=== PATIENT | female | born 1940 | race Caucasian/White ===

== ENCOUNTER 2016-12-17 17:10 | Inpatient (IN) | payer MEDICARE, OTHER ==
[2016-12-17 17:22] LABS: Glucose,Whole Blood 83 mg/dL (75-99)
[2016-12-17] MEDS ORDERED: RX INFO: IV CONTRAST WAS GIVEN 1 EACH MISC MISCELLANE PRN (17:32)
[2016-12-17] MEDS ORDERED: SODIUM CHLORIDE 0.9% 1,000 ML IV STA (17:32)
--- NOTE | 2016-12-17 17:56 | ED ---
General Adult HPI - General Chief complaint: Weakness Stated complaint: Poss CVA Time Seen by Provider: 12/17/16 17:14 Source: EMS, RN notes reviewed, old records reviewed Mode of arrival: EMS Limitations: no limitations - History of Present Illness Initial comments: This is a 69 soaking of the ear for evaluation of possible CVA. Patient has history that is unknown at this time secondary to altered mental status and patient's records, patient is unable to give history secondary to mental status , patient brought in per EMS and history from EMS as well as previous report from patient's family, right-sided facial weakness and deficit and droop, altered mental status throughout the day as well as right-sided arm and leg weakness. Per EMS patient's symptoms seem to kind of wax and wane, but they did also state that patient was unresponsive throughout much of exam, history otherwise obtained from EMS and the patient's chart - Related Data Home Medications Medication Instructions Recorded Confirmed Unable To Assess [Unable to Assess] 12/17/16 12/17/16 Allergies Allergy/AdvReac Type Severity Reaction Status Date / Time No Known Allergies Allergy Verified 12/17/16 17:21 Review of Systems ROS Statement: Those systems with pertinent positive or pertinent negative responses have been documented in the HPI. ROS Other: All systems not noted in ROS Statement are negative. Past Medical History Past Medical History: Unable to Obtain History of Any Multi-Drug Resistant Organisms: None Reported Past Surgical History: Unable to Obtain Past Psychological History: No Psychological Hx Reported Smoking Status: Current every day smoker Past Alcohol Use History: None Reported Past Drug Use History: None Reported General Exam - General Exam Comments Initial Comments: NIH of 8, right-sided deficit Limitations: no limitations, altered mental status General appearance: alert, in no apparent distress Head exam: Present: atraumatic, normocephalic, normal inspection Eye exam: Present: normal appearance, PERRL, EOMI. Absent: scleral icterus, conjunctival injection, periorbital swelling ENT exam: Present: normal exam, mucous membranes moist Neck exam: Present: normal inspection. Absent: tenderness, meningismus, lymphadenopathy Respiratory exam: Present: normal lung sounds bilaterally. Absent: respiratory distress, wheezes, rales, rhonchi, stridor Cardiovascular Exam: Present: regular rate, normal rhythm, normal heart sounds. Absent: systolic murmur, diastolic murmur, rubs, gallop, clicks GI/Abdominal exam: Present: soft, normal bowel sounds. Absent: distended, tenderness, guarding, rebound, rigid Extremities exam: Present: normal inspection, full ROM, normal capillary refill. Absent: tenderness, pedal edema, joint swelling, calf tenderness Back exam: Present: normal inspection Neurological exam: Present: alert, oriented X3, CN II-XII intact Psychiatric exam: Present: normal affect, normal mood Skin exam: Present: warm, dry, intact, normal color. Absent: rash Course Vital Signs 12/17/16 12/17/16 12/17/16 17:15 17:30 17:45 Temperature 97.2 F L Pulse Rate 92 93 95 Respiratory 18 18 18 Rate Blood Pressure 258/133 235/136 210/159 O2 Sat by Pulse 97 98 98 Oximetry 12/17/16 12/17/16 18:00 18:15 Temperature Pulse Rate 96 90 Respiratory 18 18 Rate Blood Pressure 211/105 186/101 O2 Sat by Pulse 97 98 Oximetry - Reevaluation(s) Reevaluation #1: 12/17/16 18:36 Code stroke was paged, patient was evaluated by on-call neuro interventionalists , decision was made at this time for no TPA secondary to timing of onset of symptoms Reevaluation #2: 12/17/16 18:36 Patient has a significant urinary tract infection blood pressure management issues Reevaluation #3: 12/17/16 18:36 Patient does waxwing of consciousness, responsiveness EKG Findings - EKG Comments: EKG Findings:: EKG shows sinus arrhythmia 93, NC 216, QRS 90, QTc 469 Medical Decision Making - Lab Data Result diagrams: 12/17/16 17:50 12/17/16 17:50 Lab Results 12/17/16 12/17/16 12/17/16 Range/Units 17:21 17:50 17:50 WBC 5.6 (3.8-10.6) k/uL RBC 5.11 (3.80-5.40) m/uL Hgb 15.2 (11.4-16.0) gm/dL Hct 47.4 H (34.0-46.0) % MCV 92.8 (80.0-100.0) fL MCH 29.8 (25.0-35.0) pg MCHC 32.1 (31.0-37.0) g/dL RDW 14.0 (11.5-15.5) % Plt Count 202 (150-450) k/uL Neutrophils % 58 % Lymphocytes % 28 % Monocytes % 4 % Eosinophils % 6 % Basophils % 1 % Neutrophils # 3.2 (1.3-7.7) k/uL Lymphocytes # 1.6 (1.0-4.8) k/uL Monocytes # 0.2 (0-1.0) k/uL Eosinophils # 0.3 (0-0.7) k/uL Basophils # 0.0 (0-0.2) k/uL PT (9.0-12.0) sec INR (<1.1) APTT (22.0-30.0) sec Sodium 141 (137-145) mmol/L Potassium 4.4 (3.5-5.1) mmol/L Chloride 106 (98-107) mmol/L Carbon Dioxide 24 (22-30) mmol/L Anion Gap 11 mmol/L BUN 26 H (7-17) mg/dL Creatinine 1.13 H (0.52-1.04) mg/dL Est GFR (MDRD) Af Amer 57 (>60 ml/min/1.73 sqM) Est GFR (MDRD) Non-Af 47 (>60 ml/min/1.73 sqM) Glucose 92 (74-99) mg/dL POC Glucose (mg/dL) 83 (75-99) mg/dL POC Glu Cigar Head Pegger ID Abdulaziz, Temi Calcium 9.3 (8.4-10.2) mg/dL Phosphorus 3.2 (2.5-4.5) mg/dL Magnesium 2.1 (1.6-2.3) mg/dL Total Bilirubin 0.6 (0.2-1.3) mg/dL AST 19 (14-36) U/L ALT 24 (9-52) U/L Alkaline Phosphatase 101 (38-126) U/L Total Protein 7.8 (6.3-8.2) g/dL Albumin 4.3 (3.5-5.0) g/dL Urine Color Urine Appearance (Clear) Urine pH (5.0-8.0) Ur Specific [place] (1.001-1.035) Urine Protein (Negative) Urine Glucose (UA) (Negative) Urine Ketones (Negative) Urine Blood (Negative) Urine Nitrate (Negative) Urine Bilirubin (Negative) Urine Urobilinogen (<2.0) mg/dL Ur Leukocyte Esterase (Negative) Urine RBC (0-5) /hpf Urine WBC (0-5) /hpf Ur Squamous Epith Cells (0-4) /hpf Urine Bacteria (None) /hpf Urine Mucus (None) /hpf 12/17/16 12/17/16 Range/Units 17:50 18:02 WBC (3.8-10.6) k/uL RBC (3.80-5.40) m/uL Hgb (11.4-16.0) gm/dL Hct (34.0-46.0) % MCV (80.0-100.0) fL MCH (25.0-35.0) pg MCHC (31.0-37.0) g/dL RDW (11.5-15.5) % Plt Count (150-450) k/uL Neutrophils % % Lymphocytes % % Monocytes % % Eosinophils % % Basophils % % Neutrophils # (1.3-7.7) k/uL Lymphocytes # (1.0-4.8) k/uL Monocytes # (0-1.0) k/uL Eosinophils # (0-0.7) k/uL Basophils # (0-0.2) k/uL PT 10.3 (9.0-12.0) sec INR 1.0 (<1.1) APTT 23.6 (22.0-30.0) sec Sodium (137-145) mmol/L Potassium (3.5-5.1) mmol/L Chloride (98-107) mmol/L Carbon Dioxide (22-30) mmol/L Anion Gap mmol/L BUN (7-17) mg/dL Creatinine (0.52-1.04) mg/dL Est GFR (MDRD) Af Amer (>60 ml/min/1.73 sqM) Est GFR (MDRD) Non-Af (>60 ml/min/1.73 sqM) Glucose (74-99) mg/dL POC Glucose (mg/dL) (75-99) mg/dL POC Glu Cigar Head Pegger ID Calcium (8.4-10.2) mg/dL Phosphorus (2.5-4.5) mg/dL Magnesium (1.6-2.3) mg/dL Total Bilirubin (0.2-1.3) mg/dL AST (14-36) U/L ALT (9-52) U/L Alkaline Phosphatase (38-126) U/L Total Protein (6.3-8.2) g/dL Albumin (3.5-5.0) g/dL Urine Color Light Yellow Urine Appearance Turbid H (Clear) Urine pH 7.0 (5.0-8.0) Ur Specific [place] 1.011 (1.001-1.035) Urine Protein 1+ H (Negative) Urine Glucose (UA) Negative (Negative) Urine Ketones Negative (Negative) Urine Blood Negative (Negative) Urine Nitrate Negative (Negative) Urine Bilirubin Negative (Negative) Urine Urobilinogen <2.0 (<2.0) mg/dL Ur Leukocyte Esterase Large H (Negative) Urine RBC 6 H (0-5) /hpf Urine WBC >182 H (0-5) /hpf Ur Squamous Epith Cells 96 H (0-4) /hpf Urine Bacteria Many H (None) /hpf Urine Mucus Occasional H (None) /hpf Critical Care Time Critical Care Time: Yes Total Critical Care Time: 31 Disposition Clinical Impression: Dehydration, Altered mental state, Hypertensive emergency, UTI (urinary tract infection), CVA (cerebral vascular accident) Disposition: ADMITTED IP TO THIS [facility] Condition: Serious Referrals: Norma Cruz MD [Primary Care Provider] - 1-2 days
--- NOTE | 2016-12-17 18:03 | CT ---
EXAMINATION TYPE: CT brain wo con DATE OF EXAM: 12/17/2016 5:52 PM COMPARISON: 09/27/2010 HISTORY: Unresponsive. CT DLP: 1591.00 mGycm Automated exposure control for dose reduction was used. FINDINGS: There is some enlargement of the ventricles. There is no mass effect nor midline shift. There is no s ign of intracranial hemorrhage. There is evidence of old right anterior lacunar infarct in the video production intern al capsule. There is hypodensity around the frontal horns of the lateral ventricles. There is bilater al parietal lobe white matter hypodensity. Calvarium is intact. IMPRESSION: Cerebral atrophy and chronic small vessel ischemia. Old lacunar infarct anterior right internal capsu le. No acute intracranial abnormality. The extensive white matter disease is also present on the old MR scan of 09/27/2010.
[2016-12-17] MEDS ORDERED: LABETALOL SYRINGE 5 MG/ML IVP STA (18:05)
[2016-12-17] MEDS ORDERED: cefTRIAXone 2,000 MG in SODIUM CHLORIDE 0.9% 100 ML IVPB STA (18:05)
[2016-12-17 18:09] LABS: Basophils % (A) 1 %; CH 30.6; CHCM 33.1; Eosinophils # (A) 0.3 k/uL (0-0.7); Eosinophils % (A) 6 %; HCT 47.4 % (34.0-46.0); HGB 15.2 gm/dL (11.4-16.0); Luc # (Auto) 0.19; Luc % (Auto) 3; Lymphocytes # (A) 1.6 k/uL (1.0-4.8); Lymphocytes % (A) 28 %; MCH 29.8 pg (25.0-35.0); MCHC 32.1 g/dL (31.0-37.0); MCV 92.8 fL (80.0-100.0); Mean Platelet Volume 6.8; Monocytes # (A) 0.2 k/uL (0-1.0); Monocytes % (A) 4 %; Neutrophils # (A) 3.2 k/uL (1.3-7.7); Neutrophils % (A) 58 %; RBC 5.11 m/uL (3.80-5.40); WBC 5.6 k/uL (3.8-10.6)
--- NOTE | 2016-12-17 18:20 | CT ---
EXAMINATION TYPE: CT angio head neck DATE OF EXAM: 12/17/2016 6:09 PM COMPARISON: NONE HISTORY: Unresponsive CT DLP: 1591.00 mGycm Automated exposure control for dose reduction was used. CONTRAST: Performed with IV Contrast, patient injected with 65 mL of Omnipaque 350. FINDINGS: There are 3-D post processed images. There is atherosclerotic plaque and calcification at the aortic arch. There is normal branching pattern of the great vessels. There is bilateral patency of the verte bral arteries. There is arterial flow in the common internal and external carotid arteries bilaterall y. There is tortuosity of the right internal carotid artery. There is arterial flow in the anterior middle and posterior cerebral arteries bilaterally. There is n o sign of aneurysm or neovascularity. There is mild ectasia of the basilar artery. There is no sign o f aneurysm. There is no sign of hemodynamically significant stenosis in the carotid and vertebral art eries. There is mild plaque at the carotid artery bifurcations with narrowing up to 25%. IMPRESSION: THERE IS ATHEROSCLEROTIC VASCULAR DISEASE. NO EVIDENCE OF HEMODYNAMICALLY SIGNIFICANT STENOSIS. NO AN EURYSM SEEN.
[2016-12-17 18:30] LABS: Calcium 9.3 mg/dL (8.4-10.2); Magnesium 2.1 mg/dL (1.6-2.3); Phosphorous 3.2 mg/dL (2.5-4.5); Potassium 4.4 mmol/L (3.5-5.1); Total Bilirubin 0.6 mg/dL (0.2-1.3); Total Protein 7.8 g/dL (6.3-8.2)
[2016-12-17 18:31] LABS: Appearance,Urine Turbid (Clear); Bacteria,Urine Many /hpf; Bilirubin,Urine Negative (Negative); Glucose,Urine (UA) Negative (Negative); Ketones,Urine Negative (Negative); Leukocyte Esterase,Urine Large (Negative); Mucus,Urine Occasional /hpf; Nitrite,Urine Negative (Negative); Particle Count 78996; Protein,Urine 1+ (Negative); RBC,Urine 6 /hpf (0-5); Specific Gravity,Urine 1.011 (1.001-1.035); Squamous Epithelial Cell,Urine 96 /hpf (0-4); UA Billing (MACRO vs. MICRO) MICRO; Urobilinogen,Urine <2.0 mg/dL (<2.0); WBC,Urine >182 /hpf (0-5)
[2016-12-17 18:33] LABS: Partial Thromboplastin Time 23.6 sec (22.0-30.0); Prothrombin Time 10.3 sec (9.0-12.0)
[2016-12-17] MEDS ORDERED: ASPIRIN 325 MG TAB PO STA (18:34)
[2016-12-17 18:35] LABS: Creatine Kinase 43 U/L (30-135)
[2016-12-17] MEDS: SODIUM CHLORIDE 0.9% 1,000 ML IV SCH (18:37)
--- NOTE | 2016-12-17 18:45 | XR ---
EXAMINATION TYPE: XR chest 1V portable DATE OF EXAM: 12/17/2016 6:40 PM COMPARISON: NONE HISTORY: Possible CVA TECHNIQUE: Single frontal view of the chest is obtained. FINDINGS: Heart is enlarged. There is coarsening of interstitial markings. There is no pleural effus ion. There are no hilar masses. There are chest leads. IMPRESSION: No gross heart failure. Mild pulmonary fibrotic changes. Cardiomegaly.
[2016-12-17 18:47] LABS: Creatine Kinase MB 0.7 ng/mL (0.0-2.4); Troponin I <0.012 ng/mL (0.000-0.034)
[2016-12-17 20:27] VITALS: BMI 34.4
[2016-12-18] MEDS: SODIUM CHLORIDE 0.9% 1,000 ML IV SCH ×2 (01:29→15:35)
--- NOTE | 2016-12-18 08:45 | US ---
EXAMINATION TYPE: US carotid duplex BILAT DATE OF EXAM: 12/18/2016 8:04 AM COMPARISON: NONE CLINICAL HISTORY: Stenosis. Weakness, possible CVA EXAM MEASUREMENTS: RIGHT: Peak Systolic Velocity (PSV) cm/sec ----- Right CCA: 33.9 ----- Right ICA: 87.8 ----- Right ECA: 50.5 ICA/CCA ratio: 2.6 RIGHT: End Diastole cm/sec ----- Right CCA: 12.1 ----- Right ICA: 37.3 ----- Right ECA: 16.4 LEFT: Peak Systolic Velocity (PSV) cm/sec ----- Left CCA: 67.9 ----- Left ICA: 71.7 ----- Left ECA: 107.3 ICA/CCA ratio: 1.1 LEFT: End Diastole cm/sec ----- Left CCA: 15.0 ----- Left ICA: 19.7 ----- Left ECA: 18.0 VERTEBRALS (direction of flow): Right Vertebral: Antegrade Left Vertebral: Antegrade TECHNOLOGIST IMPRESSION: Mild to moderate plaque noted bilateral bifurcations. Tortuous right ICA IMPRESSION: I do not see evidence of a hemodynamically significant stenosis in either carotid system. Criteria for Assigning % of Stenosis / Diameter reduction (Estimation based on the indirect measurements of the internal carotid artery velocities (ICA PSV). 1. Normal (no stenosis)=ICA PSV < 125 cm/s: ratio < 2.0: ICA EDV<40 cm/s. 2. Less than 50% stenosis=ICA PSV < 125 cm/s: ratio < 2.0: ICA EDV<40 cm/s. 3. 50 to 69% stenosis=ICA PSV of 125 to 230 cm/s: ration 2.0 ? 4.0: ICA EDV 40-100 cm/s. 4. Greater than 70% stenosis to near occlusion= ICA PSV > 230 cm/s: ratio > 4.0: ICA EDV > 100 cm/s. 5. Near occlusion= ICA PSV velocities may be low or undetectable: variable ratio and ICA EDV. 6. Total occlusion=unable to detect flow.
[2016-12-18 09:08] LABS: Basophils % (A) 0 %; CH 30.2; CHCM 32.1; Eosinophils # (A) 0.3 k/uL (0-0.7); Eosinophils % (A) 5 %; HCT 42.1 % (34.0-46.0); HDW 2.54; HGB 13.3 gm/dL (11.4-16.0); Luc # (Auto) 0.11; Luc % (Auto) 3; Lymphocytes # (A) 1.3 k/uL (1.0-4.8); Lymphocytes % (A) 29 %; MCH 29.8 pg (25.0-35.0); MCHC 31.5 g/dL (31.0-37.0); MCV 94.7 fL (80.0-100.0); Mean Platelet Volume 7.8; Monocytes # (A) 0.3 k/uL (0-1.0); Monocytes % (A) 6 %; Neutrophils # (A) 2.6 k/uL (1.3-7.7); Neutrophils % (A) 57 %; RBC 4.44 m/uL (3.80-5.40); RDW 13.9 % (11.5-15.5); WBC 4.5 k/uL (3.8-10.6); WBC (Perox) 4.85
[2016-12-18 09:14] LABS: ALT 17 U/L (9-52); AST 16 U/L (14-36); Alkaline Phosphatase 78 U/L (38-126); Anion Gap 10 mmol/L; Blood Urea Nitrogen 23 mg/dL (7-17); Calcium 8.7 mg/dL (8.4-10.2); Carbon Dioxide 23 mmol/L (22-30); Chloride 112 mmol/L (98-107); Glucose 102 mg/dL (74-99); Non-African American GFR(MDRD) 54 (>60 ml/min/1.73 sqM); Potassium 4.1 mmol/L (3.5-5.1); Sodium 145 mmol/L (137-145); Total Bilirubin 0.5 mg/dL (0.2-1.3); Total Protein 6.5 g/dL (6.3-8.2)
--- NOTE | 2016-12-18 09:36 | ECHOF ---
Referral Reason:Thrombus MEASUREMENTS -------- HEIGHT: 154.9 cm WEIGHT: 82.5 kg BP: IVSd: 1.9 cm (0.6 - 1.1) LVIDd: 3.2 cm (3.9 - 5.3) LVPWd: 1.8 cm (0.6 - 1.1) IVSs: 2.6 cm LVIDs: 1.8 cm LVPWs: 2.3 cm Ao Diam: 3.3 cm (2.0 - 3.7) AV Cusp: 1.6 cm (1.5 - 2.6) LA Diam: 3.4 cm (2.7 - 3.8) MV EXCURSION: 13.536 mm (> 18.000) MV EF SLOPE: 42 mm/s (70 - 150) EPSS: 0.7 cm MV E Justin: 0.84 m/s MV DecT: 310 ms MV A Justin: 1.13 m/s MV E/A Ratio: 0.74 RAP: 5.00 mmHg RVSP: 21.84 mmHg FINDINGS -------- Sinus rhythm. This was a technically adequate study. There is severe concentric left ventricular hypertrophy. Overall left ventricular systolic function is normal with, an EF between 55 - 60 %. The right ventricle is normal in size and function. The left atrium is normal in size. The right atrium is normal in size. Aortic valve is trileaflet and is mildly thickened. The mitral valve leaflets are mildly thickened. Mild mitral regurgitation is present. Mild tricuspid regurgitation present. The right ventricular systolic pressure, as measured by Doppler, is 21.84mmHg. Pulmonic valve appears structurally normal. The aortic root size is normal. The pericardium is normal. CONCLUSIONS -------- 1. Sinus rhythm. 2. Mild mitral regurgitation is present. 3. Mild tricuspid regurgitation present. 4. The right ventricular systolic pressure, as measured by Doppler, is 21.84mmHg. 5. Pulmonic valve appears structurally normal. 6. The aortic root size is normal. 7. The pericardium is normal. 8. This was a technically adequate study. 9. There is severe concentric left ventricular hypertrophy. 10. Overall left ventricular systolic function is normal with, an EF between 55 - 60 %. 11. The right ventricle is normal in size and function. 12. The left atrium is normal in size. 13. The right atrium is normal in size. 14. Aortic valve is trileaflet and is mildly thickened. 15. The mitral valve leaflets are mildly thickened. CONFECTIONERY DROPS MACHINE OPERATOR: Melina De Souza RDCS
[2016-12-18] MEDS: hydrALAZINE HCL 20 MG/ML 1 ML VIAL IVP PRN (09:47)
[2016-12-18] MEDS: amLODIPine 2.5 MG TAB PO SCH (10:38)
[2016-12-18] MEDS: FAMOTIDINE 20 MG TAB PO SCH (10:38)
[2016-12-18] MEDS: ENOXAPARIN 40 MG/0.4 ML SYRINGE SQ SCH (10:39)
[2016-12-18] MEDS: ISOSORBIDE MONONITRATE ER 30 MG TAB.ER.24H PO SCH (10:39)
[2016-12-18] MEDS: LEVOTHYROXINE 88 MCG TAB PO SCH (10:39)
--- NOTE | 2016-12-18 11:17 | P.HPIM ---
History of Present Illness H&P Date: 12/18/16 Chief Complaint: Right-sided weakness and slurred speech This is a 76-year-old female with a known past medical history of previous CVA, myocardial infarction, dementia, hyperlipidemia, hypertension, hypothyroidism and coronary artery disease. Patient is a poor historian. She is unable to speak. Most of history came from the chart. Patient was brought into the emergency room secondary to altered mental status changes as well as right- sided weakness facial droop and slurred speech. There were concerns for possible stroke. She was admitted to the telemetry floor. Neurology has been consulted computed tomography scan of the brain shows cerebral atrophy and chronic small vessel ischemia. Old lacunar infarct anterior right internal capsule. No acute intracranial abnormality. She was placed on a full aspirin. She is also had a carotid ultrasound showing no significant hemodynamic stenosis. Echo shows an EF of 55-60% with severe left ventricle hypertrophy. Patient had hypertensive emergency with a blood pressure of 258/133 on admission. Currently receiving IV hydralazine as needed. Patient also had evidence of a UTI and has been started on Rocephin. Patient lying in bed comfortably no distress. There is some evidence of a right-sided facial droop and is having difficulty talking. When asked questions she states her head yes or no. She denies any chest pain, shortness of breath, nausea or vomiting. Denies any bowel movement changes or urinary symptoms. Review of Systems Please refer to HPI otherwise unremarkable Past Medical History Past Medical History: Coronary Artery Disease (CAD), Chest Pain / Angina, CVA/ TIA, Dementia, GERD/Reflux, Hyperlipidemia, Hypertension, Memory Impairment, Myocardial Infarction ([place]), Osteoarthritis (OA), Pneumonia, Thyroid Disorder Last Myocardial Infarction Date:: 2006 History of Any Multi-Drug Resistant Organisms: None Reported Past Surgical History: Breast Surgery, Heart Catheterization With Stent, Tubal Ligation Additional Past Surgical History / Comment(s): cataract surgery, AAA surgery, breast lumps removed Past Anesthesia/Blood Transfusion Reactions: No Reported Reaction Date of Last Stent Placement:: 2006 Past Psychological History: No Psychological Hx Reported, Depression Smoking Status: Current every day smoker Past Alcohol Use History: None Reported Past Drug Use History: None Reported - Past Family History Father Additional Family Medical History / Comment(s): alcoholic, AAA Mother Family Medical History: Memory Impairment Additional Family Medical History / Comment(s): from Alzheimers Medications and Allergies Home Medications Medication Instructions Recorded Confirmed Type Ergocalciferol [Vitamin D2] 50,000 unit PO Q7D 12/17/16 12/17/16 History HYDROcodone/APAP 5-325MG [[place] 2 tab PO Q4HR PRN 12/17/16 12/17/16 History 5-325] Isosorbide Mononitrate ER [Imdur] 30 mg PO DAILY 12/17/16 12/17/16 History Levothyroxine Sodium [Synthroid] 88 mcg PO DAILY 12/17/16 12/17/16 History Lisinopril [Zestril] 10 mg PO BID 12/17/16 12/17/16 History Pravastatin Sodium [Pravachol] 40 mg PO HS 12/17/16 12/17/16 History amLODIPine [Norvasc] 2.5 mg PO DAILY 12/17/16 12/17/16 History Allergies Allergy/AdvReac Type Severity Reaction Status Date / Time nickel Allergy Unknown Verified 12/17/16 19:07 Physical Exam Vitals: Vital Signs Temp Pulse Pulse Resp BP BP Pulse Ox 12/18/16 10:40 146/94 12/18/16 08:45 68 18 12/18/16 08:39 96.9 F L 94 18 175/97 12/18/16 04:00 97.3 F L 65 18 157/85 97 12/17/16 23:56 97.8 F 71 18 164/90 100 12/17/16 20:00 70 18 12/17/16 19:05 97.7 F 72 70 18 145/81 155/100 99 12/17/16 18:50 74 18 151/76 97 12/17/16 18:37 84 18 200/113 98 Intake and Output 12/17/16 12/18/16 12/18/16 22:59 06:59 14:59 Intake Total 600 Balance 600 Intake: IV 600 Sodium Chloride 0.9% 1, 600 000 ml @ 100 mls/hr IV . Q10H [facility] Rx#:[id number] Other: Voiding Method Diaper Diaper Diaper # Voids 0 Weight 82.781 kg 81.5 kg Head normocephalic Neck supple Lungs clear to auscultation bilaterally no wheezing or crackles Heart regular rate and rhythm S1-S2, no rub or gallop Abdomen is soft nontender nondistended positive bowel sounds no hepatosplenomegaly Extremities no edema Neuro patient is awake and lying in bed comfortably. She is able to say her name. Otherwise she is having difficulty with words. Right side of facial droop. Hand print cutter is about a 4 out of 5 on the right compared to to the left. Lower extremity strength is weak bilaterally. Results CBC & Chem 7: 12/18/16 02:55 12/18/16 02:55 Labs: Abnormal Lab Results - Last 24 Hours (Table) 12/18/16 Range/Units 02:55 Chloride 112 H (98-107) mmol/L BUN 23 H (7-17) mg/dL Glucose 102 H (74-99) mg/dL Thrombosis Risk Factor Assmnt - Choose All That Apply Any of the Below Risk Factors Present?: Yes Each Factor Represents 1 point: Acute [place] Each Risk Factor Represents 3 Points: Age 75 years or older Other congenital or acquired thrombophilia - If yes, enter type in comment: No Thrombosis Risk Factor Assessment Total Risk Factor Score: 4 Thrombosis Risk Factor Assessment Level: Moderate Risk Assessment and Plan Plan: 1. Facial droop with right-sided weakness and slurred speech possibly related to CVA. Neuro workup in progress. Initial computed tomography scan of the brain did not show any acute intracranial abnormality. Revealed severe atrophy and chronic small vessel ischemic change and old lacunar infarct of the anterior right internal capsule. Carotid Doppler showed no snacking hemodynamic stenosis. Echo shows an EF of 55-60% with severe left ventricle hypertrophy. Patient was evaluated by speech therapy diet has been adjusted to a pured nectar thick diet. EKG shows a normal sinus rhythm with first-degree AV block. CTA of the head and neck shows no significant hemodynamic stenosis. Check lipid panel. PT OT consult. Continue full aspirin and statin 2. Hypertensive emergency on admission: Blood pressure 258/133 on admission. Patient's blood pressures medications will be restarted. She also has IV hydralazine as needed. 3. UTI: Urine culture pending. Continue Rocephin 4. Acute kidney injury on admission with a creatinine of 1.13 possibly related to dehydration. Improved with IV fluids. Continue to monitor 5. History of myocardial infarction with coronary artery disease with previous stent. 6. Dementia 7. history of essential hypertension 8. Hyperlipidemia 9. Hypothyroidism continue her Synthroid 10. Nicotine dependence. Start nicotine patch GI prophylaxis Pepcid and DVT prophylaxis Lovenox Time with Patient: Greater than 30 (Greater than 50% of the total time spent in counseling and coordination of care.I performed an examination of the patient and discussed their management with the physician Chainstitch Zipper Setter. I have reviewed the Physician Chainstitch Zipper Setter's notes and agree with the documented findings and plan of care)
[2016-12-18 12:21] LABS: Cholesterol 217 mg/dL (<200); HDL Cholesterol 31 mg/dL (40-60); Triglycerides 160 mg/dL (<150)
[2016-12-18] MEDS: NICOTINE 21MG/24HR PATCH TRANSDERM SCH (15:34)
[2016-12-18] MEDS: PROLENSA 0.07% BOTH EYES SCH (15:35)
[2016-12-18] MEDS: ASPIRIN 325 MG TAB PO SCH (17:08)
--- NOTE | 2016-12-18 17:37 | P.CNNES ---
History of Present Illness Consult date: 12/18/16 Reason for Consult: This patient admitted for right-sided weakness and stroke. History of Present Illness: This patient is a 76-year-old right-handed white female who was in her usual state of health until yesterday. She was at home and was noted to have increasing symptoms of right-sided weakness. According to the daughter who provided the medical history she lives at home with the sister who takes care of her. Apparently she developed sudden right-sided arm and leg weakness. She was having difficulty ambulating at home. The patient was brought into the emergency room where she was further evaluated. She was sent for a computed tomography scan of the brain which failed to reveal any evidence of acute stroke or hemorrhage. She did have evidence of hypertensive urgency in the ER and was treated. A code stroke was initiated and she was evaluated by the neuro interventional is. Decision was made the patient was not a TPA candidate. Onset of her symptoms was unknown. This was 6 lesion or a factor. As noted she did undergo computed tomography scan of the brain which revealed cerebral atrophy and chronic small vessel ischemic changes. There was evidence of an old lacunar infarct in the right internal capsule. According to the daughter the patient had been doing fairly well up until recently. She has been showing increasing symptoms of weakness. The patient did undergo a CT angiogram which failed to reveal any evidence of significant carotid artery disease or stenosis. No aneurysm was seen. According to the daughter the patient has a history of a remote small brain tumor lesion. She states this was detected years ago by MRI imaging. This was not detected on the CAT scan report. The patient continues to show evidence of dysarthric speech and aphasia. She is weaker on her right side but has shown improvement since admission to the hospital. This is been noted by the daughter as well. Patient still has some right-sided weakness however and is admitted for full stroke evaluation. Neurology is now consulted for further evaluation and recommendations. Review of Systems Constitutional: Denies chills, Denies fever Eyes: denies blurred vision, denies pain Ears, nose, mouth and throat: Denies headache, Denies sore throat Cardiovascular: Denies chest pain, Denies shortness of breath Respiratory: Denies cough Gastrointestinal: Denies abdominal pain, Denies diarrhea, Denies nausea, Denies vomiting Genitourinary: Denies dysuria, Denies hematuria Musculoskeletal: Denies myalgias Integumentary: Denies pruritus, Denies rash Neurological: Reports change in mentation, Reports change in speech, Reports confusion, Reports gait dysfunction, Reports headaches, Reports memory loss, Denies numbness, Denies weakness Psychiatric: Denies anxiety, Denies depression Endocrine: Denies fatigue, Denies weight change Past Medical History Past Medical History: Coronary Artery Disease (CAD), Chest Pain / Angina, CVA/ TIA, Dementia, GERD/Reflux, Hyperlipidemia, Hypertension, Memory Impairment, Myocardial Infarction (NC), Osteoarthritis (OA), Pneumonia, Thyroid Disorder Last Myocardial Infarction Date:: 2006 History of Any Multi-Drug Resistant Organisms: None Reported Past Surgical History: Breast Surgery, Heart Catheterization With Stent, Tubal Ligation Additional Past Surgical History / Comment(s): cataract surgery, AAA surgery, breast lumps removed Past Anesthesia/Blood Transfusion Reactions: No Reported Reaction Date of Last Stent Placement:: 2006 Past Psychological History: No Psychological Hx Reported, Depression Smoking Status: Current every day smoker Past Alcohol Use History: None Reported Past Drug Use History: None Reported - Past Family History Father Additional Family Medical History / Comment(s): alcoholic, AAA Mother Family Medical History: Memory Impairment Additional Family Medical History / Comment(s): from Alzheimers Medications and Allergies Home Medications Medication Instructions Recorded Confirmed Type Ergocalciferol [Vitamin D2] 50,000 unit PO Q7D 12/17/16 12/17/16 History HYDROcodone/APAP 5-325MG [Plain 2 tab PO Q4HR PRN 12/17/16 12/17/16 History 5-325] Isosorbide Mononitrate ER [Imdur] 30 mg PO DAILY 12/17/16 12/17/16 History Levothyroxine Sodium [Synthroid] 88 mcg PO DAILY 12/17/16 12/17/16 History Lisinopril [Zestril] 10 mg PO BID 12/17/16 12/17/16 History Pravastatin Sodium [Pravachol] 40 mg PO HS 12/17/16 12/17/16 History amLODIPine [Norvasc] 2.5 mg PO DAILY 12/17/16 12/17/16 History Prolensa 1 bottle OPHTHALMIC DAILY 12/18/16 12/18/16 History Allergies Allergy/AdvReac Type Severity Reaction Status Date / Time nickel Allergy Unknown Verified 12/17/16 19:07 Physical Examination - Vital Signs Vital Signs: Vital Signs Temp Pulse Pulse Resp BP BP Pulse Ox 12/18/16 16:00 97 F L 63 17 156/97 12/18/16 12:00 78 19 121/81 97 12/18/16 11:46 66 18 12/18/16 11:43 97.1 F L 66 94 H 145/82 12/18/16 10:40 146/94 12/18/16 08:45 68 18 12/18/16 08:39 96.9 F L 94 18 175/97 12/18/16 04:00 97.3 F L 65 18 157/85 97 12/17/16 23:56 97.8 F 71 18 164/90 100 12/17/16 20:00 70 18 12/17/16 19:05 97.7 F 72 70 18 145/81 155/100 99 12/17/16 18:50 74 18 151/76 97 12/17/16 18:37 84 18 200/113 98 Intake and Output 12/18/16 12/18/16 12/18/16 06:59 14:59 22:59 Intake Total 600 Balance 600 Intake: IV 600 Sodium Chloride 0.9% 1, 600 000 ml @ 100 mls/hr IV . Q10H [facility] Rx#:[id number] Other: Voiding Method Diaper Diaper Diaper # Voids 1 Weight 81.5 kg - Constitutional General appearance: average body habitus, cooperative - EENT EENT: PERRL, mucous membranes moist - Respiratory Respiratory: lungs clear, normal breath sounds - Cardiovascular Cardiovascular: regular rate, normal S1, normal S2 Extremities: no peripheral edema bilaterally - Gastrointestinal Gastrointestinal: normoactive bowel sounds - Integumentary Integumentary: normal - Neurologic Cranial nerve examination: PERRL, V1/V2/V3 grossly intact, intact gag reflex, intact corneal reflex, facial droop (Patient has right upper motor neuron facial weakness.), normal palatal elevation Speech examination: motor aphasia Sensorimotor examination: intact Motor examination - right side: 3/5: biceps, triceps, wrist flexion, wrist extension, dominatrix, hip flexors, knee extensors, dorsiflexion, toe extension (EHL) , plantarflexion Motor examination - left side: 5/5: biceps, triceps, wrist flexion, wrist extension, dominatrix, hip flexors, knee extensors, dorsiflexion, toe extension (EHL) , plantarflexion Detailed sensory examination: intact Reflex and gait examination: intact Reflexes: 1+: ankle, bicep, knee, tricep - Musculoskeletal Musculoskeletal: no pain - Psychiatric Psychiatric: mood/affect appropriate, cooperative Results - Laboratory Findings CBC and BMP: 12/18/16 02:55 12/18/16 02:55 Abnormal Lab Findings: Abnormal Labs 12/18/16 12/18/16 02:55 02:55 Chloride 112 H BUN 23 H Glucose 102 H Triglycerides 160 H Cholesterol 217 H LDL Cholesterol, Calc 154 H HDL Cholesterol 31 L Assessment and Plan (1) Acute ischemic left MCA stroke Status: Acute Code(s): I63.512 - CEREB INFRC D/T UNSP OCCLS OR STENOS OF LEFT MID CEREB ART (2) Acute encephalopathy Status: Acute Code(s): G93.40 - ENCEPHALOPATHY, UNSPECIFIED (3) Dehydration Status: Acute Code(s): E86.0 - DEHYDRATION (4) UTI (urinary tract infection) Status: Acute Code(s): N39.0 - URINARY TRACT INFECTION, SITE NOT SPECIFIED Plan: This patient is a 76-year-old female who was admitted to Hospital with symptoms of acute right-sided weakness. She was brought into the emergency room where she was evaluated in the ER by Dr. Gipson. A computed tomography scan of the brain was done and failed to reveal any evidence of acute stroke or hemorrhage. A code stroke was initiated but she was excluded for TPA by the neuro interventionalist. She was outside of the therapeutic window with no clear time of onset of symptoms. She underwent a CTA angiogram which failed to reveal any acute changes. Patient was admitted to Hospital. She continues to have evidence of aphasia and right-sided hemiparesis. We have recommended the patient undergo an MRI of the brain for further evaluation. She is being treated for hypertensive urgency as well as a urinary tract infection. These factors also are contributing to her acute encephalopathy. We will continue close neurological follow-up for the patient during this admission. Case was discussed at length with the patient and her daughter at bedside. All of their questions were answered. They're aware of her guarded condition. Time with Patient: Greater than 30
[2016-12-18] MEDS: LISINOPRIL 10 MG TAB PO SCH (22:38)
[2016-12-19] MEDS: PRAVASTATIN SODIUM 40 MG TAB PO SCH ×2 (03:24→21:36)
[2016-12-19 07:01] LABS: Basophils % (A) 1 %; CH 30.9; CHCM 33.4; Eosinophils # (A) 0.2 k/uL (0-0.7); Eosinophils % (A) 4 %; HCT 40.4 % (34.0-46.0); HDW 2.62; HGB 13.5 gm/dL (11.4-16.0); Luc # (Auto) 0.14; Luc % (Auto) 2; Lymphocytes # (A) 1.3 k/uL (1.0-4.8); Lymphocytes % (A) 21 %; MCH 31.1 pg (25.0-35.0); MCHC 33.4 g/dL (31.0-37.0); MCV 92.8 fL (80.0-100.0); Mean Platelet Volume 7.6; Monocytes # (A) 0.3 k/uL (0-1.0); Monocytes % (A) 4 %; Neutrophils # (A) 4.4 k/uL (1.3-7.7); Neutrophils % (A) 69 %; RBC 4.35 m/uL (3.80-5.40); RDW 13.9 % (11.5-15.5); WBC 6.3 k/uL (3.8-10.6); WBC (Perox) 6.27
[2016-12-19 07:08] LABS: ALT 24 U/L (9-52); AST 24 U/L (14-36); Alkaline Phosphatase 89 U/L (38-126); Anion Gap 9 mmol/L; Blood Urea Nitrogen 16 mg/dL (7-17); Calcium 8.8 mg/dL (8.4-10.2); Carbon Dioxide 24 mmol/L (22-30); Chloride 110 mmol/L (98-107); Glucose 98 mg/dL (74-99); Non-African American GFR(MDRD) 54 (>60 ml/min/1.73 sqM); Potassium 3.9 mmol/L (3.5-5.1); Sodium 143 mmol/L (137-145); Total Bilirubin 0.8 mg/dL (0.2-1.3); Total Protein 6.7 g/dL (6.3-8.2)
[2016-12-19] MEDS: SODIUM CHLORIDE 0.9% 1,000 ML IV SCH ×3 (08:21→21:36)
[2016-12-19] MEDS: LEVOTHYROXINE 88 MCG TAB PO SCH (08:21)
[2016-12-19] MEDS: ISOSORBIDE MONONITRATE ER 30 MG TAB.ER.24H PO SCH (09:01)
[2016-12-19] MEDS: LISINOPRIL 10 MG TAB PO SCH ×2 (09:01→21:36)
[2016-12-19] MEDS: ENOXAPARIN 40 MG/0.4 ML SYRINGE SQ SCH (09:01)
[2016-12-19] MEDS: NICOTINE 21MG/24HR PATCH TRANSDERM SCH (09:01)
[2016-12-19] MEDS: ASPIRIN 325 MG TAB PO SCH (09:01)
[2016-12-19] MEDS: FAMOTIDINE 20 MG TAB PO SCH (09:02)
[2016-12-19] MEDS: amLODIPine 2.5 MG TAB PO SCH (09:02)
[2016-12-19] MEDS: PROLENSA 0.07% BOTH EYES SCH (09:02)
--- NOTE | 2016-12-19 09:27 | P.PN ---
Subjective Principal diagnosis: Right sided weakness, urinary tract infection Patient is a 76-year-old female well known to my practice who presented to [facility] emergency room with mental status changes aphagia right sided weakness involving the right upper extremity and right lower extremity, difficulty with ambulation, she was evaluated in the emergency room her symptoms were suggestive of stroke computed tomography scan of the brain was negative onset of symptoms was unclear, code stroke was done in the emergency room but no TPA was given she was admitted to telemetry floor for further evaluation and treatment. Neurology consultation was requested patient was seen by Dr. Alcocer, echocardiogram was done and revealed normal sinus rhythm and normal LV function, carotid Doppler was done and did not reveal any significant stenosis. Today patient is feeling better she is alert and oriented she is answering questions appropriately, which is a significant improvement in her mental status since yesterday. She is able to move her right upper extremity and the right lower extremity, there is still however weakness as compared to the left side. Objective - Vital Signs Vital signs: Vital Signs Temp 96.7 F L 12/18/16 20:00 Pulse 69 12/19/16 04:00 Resp 17 12/19/16 04:00 BP 142/76 12/19/16 04:00 Pulse Ox 97 12/19/16 04:00 Intake & Output 12/18/16 12/19/16 12/19/16 18:59 06:59 18:59 Other: Voiding Method Diaper Diaper # Voids 1 2 - Exam In general patient is alert and oriented 3 in no apparent distress HEENT head normocephalic and atraumatic Neck is supple no JVD no goiter no lymphadenopathy Chest exam reveals a few scattered crackles no wheezing Cardiac exam reveals regular heart sounds no gallops no murmurs Abdomen is soft nontender no organomegaly Extremity exam reveals minimal edema no cyanosis or clubbing - Labs CBC & Chem 7: 12/19/16 06:12 12/19/16 06:12 Labs: Abnormal Lab Results - Last 24 Hours (Table) 12/18/16 12/18/16 12/19/16 Range/Units 02:55 02:55 06:12 Chloride 112 H 110 H (98-107) mmol/L BUN 23 H (7-17) mg/dL Glucose 102 H (74-99) mg/dL Triglycerides 160 H (<150) mg/dL Cholesterol 217 H (<200) mg/dL LDL Cholesterol, Calc 154 H (0-99) mg/dL HDL Cholesterol 31 L (40-60) mg/dL Microbiology - Last 24 Hours (Table) 12/18/16 02:55 Blood Culture - Preliminary Blood No Growth after 24 hours Assessment and Plan Plan: #1 stroke with right sided weakness and aphasia improving significantly since yesterday. Echo cardiogram and carotid Doppler was without significant abnormality, patient was evaluated by neurology MRI of the brain was ordered. #2 urinary tract infection maintained on IV Rocephin, urine culture revealing gram-negative bacilli, awaiting further culture results and sensitivity #3 tobacco abuse patient was counseled in regard to smoking cessation she has a nicotine patch at this time. #4 hypertension with hypertensive emergency on presentation, likely due to missing taking her blood pressure medications, blood pressure is better controlled at this time. #5 swallow evaluation done yesterday and patient was started on soft diet. Continue was current management at this time awaiting brain MRI will follow closely.
--- NOTE | 2016-12-19 11:33 | MR ---
MRI of the brain with and without contrast HISTORY: Headaches. TECHNIQUE: T1-weighted sagittal, T2, FLAIR, and diffusion axial, postcontrast T1 axial and coronal vi ews of the brain are submitted. CONTRAST: 16 mL of MultiHance COMPARISON: CT brain 12/27/2016, MRI brain 11/11/2010 FINDINGS: There is diffusion restriction within the left thalamus measuring 1.8 cm compatible with acute ischem ia.. Ventricular prominence suggestive moderate to severe degenerative change. Greater central component r aises the question of normal pressure hydrocephalus.. There is enhancing mass within the posterior fossa which appears extrathoracic axial. Adjacent to the medulla and cerebellum hemisphere. Measures 1.5 x 1.5 x 1.5 cm and demonstrates homogeneous enhancem ent and is most suggestive of a meningioma and stable from the previous exam. No significant mass eff ect. Craniocervical junction maintained. Sella turcica has a normal appearance. No evidence of cerebellopo ntine angle mass. Findings compatible with chronic sinusitis noted. WHITE MATTER: There is confluent areas of diffuse areas of abnormal signal throughout the white matte r bilaterally a pattern most typical of diffuse microvascular ischemia. IMPRESSION: 1. There is a 1.8 cm area of acute ischemia within the left thalamus with no significant mass effect. Results immediately telephoned to the patient's nurse Araceli. 2. Stable posterior fossa mass most typical of meningioma 3. Extensive degenerative and nonspecific white matter changes most typical of remote ischemic white matter change. Component of normal pressure hydrocephalus in the differential diagnosis.
--- NOTE | 2016-12-19 14:25 | P.PN ---
Subjective This patient is a 76-year-old female who was seen yesterday on neurology consultation for evaluation of mental status changes and right-sided weakness. She was seen in the ER and underwent a computed tomography scan of the brain which failed to reveal any acute stroke or hemorrhage. She was subsequent admitted to the hospital for a complete stroke evaluation. Patient underwent MRI of the brain today the results of which were reviewed. MRI indicates a 1.8 cm acute stroke involving the left thalamus. There was evidence of a stable posterior fossa mass most typical of meningioma which apparently is not changed from previous MRI of the brain. There is also extensive degenerative white matter ischemic changes noted in both hemispheres. Results of the MRI were reviewed today with the patient and her daughter at bedside. Cording to the daughter she still shows evidence of expressive aphasia and right-sided hemiparesis. Patient will need ongoing PT/ OT evaluation and possible subacute rehab depending on her progress. Patient will most likely need subacute rehabilitation at the time of discharge. We will continue close neurological follow-up for this patient during this admission. Objective - Vital Signs Vital signs: Vital Signs Temp 98.7 F 12/19/16 08:00 Pulse 72 12/19/16 08:00 Resp 17 12/19/16 04:00 BP 129/78 12/19/16 08:00 Pulse Ox 95 12/19/16 08:00 Intake & Output 12/18/16 12/19/16 12/19/16 18:59 06:59 18:59 Other: Voiding Method Diaper Diaper Diaper # Voids 1 2 - Exam Physical examination: PHYSICAL EXAMINATION: Patient is resting comfortably in bed. VITAL SIGNS: Blood pressure is [129/78]. Heart rate is [72]. Respiration is [17] . Temperature is [98.7]. HEENT: Head is atraumatic, neck is supple, there were no carotid bruits. CHEST: Lungs are clear to auscultation and percussion. CARDIAC: S1, S2 normal rate and rhythm. There is no murmur. ABDOMEN: Soft and nontender. Bowel sounds are present. EXTREMITIES: There is no pedal edema. Peripheral pulses are present. Neurological examination: Neurological examination is unchanged from yesterday. Patient continues to demonstrate evidence of mild expressive aphasia with right-sided hemiparesis. - Labs CBC & Chem 7: 12/19/16 06:12 12/19/16 06:12 Labs: Abnormal Lab Results - Last 24 Hours (Table) 12/19/16 Range/Units 06:12 Chloride 110 H (98-107) mmol/L Microbiology - Last 24 Hours (Table) 12/18/16 02:55 Blood Culture - Preliminary Blood No Growth after 24 hours Assessment and Plan (1) Acute ischemic left MCA stroke Status: Acute Code(s): I63.512 - CEREB INFRC D/T UNSP OCCLS OR STENOS OF LEFT MID CEREB ART (2) Acute encephalopathy Status: Acute Code(s): G93.40 - ENCEPHALOPATHY, UNSPECIFIED (3) Dehydration Status: Acute Code(s): E86.0 - DEHYDRATION (4) UTI (urinary tract infection) Status: Acute Code(s): N39.0 - URINARY TRACT INFECTION, SITE NOT SPECIFIED Plan: This patient is a 76-year-old female who was admitted to Hospital with symptoms of acute right-sided weakness. She was brought into the emergency room where she was evaluated in the ER by Dr. Gipson. A computed tomography scan of the brain was done and failed to reveal any evidence of acute stroke or hemorrhage. A code stroke was initiated but she was excluded for TPA by the neuro interventionalist. She was outside of the therapeutic window with no clear time of onset of symptoms. She underwent a CTA angiogram which failed to reveal any acute changes. Patient was admitted to Hospital. She continues to have evidence of aphasia and right-sided hemiparesis. We have recommended the patient undergo an MRI of the brain for further evaluation. She completed a MRI of the brain which was reviewed today with the daughter. MRI reveals evidence of any acute left thalamic infarct. There is also mention of a posterior fossa mass which is unchanged and represents a meningioma. Patient will need ongoing subacute rehab with PT OT evaluations. We discussed the MRI findings today in detail with the daughter at bedside. She is being treated for hypertensive urgency as well as a urinary tract infection. These factors also are contributing to her acute encephalopathy. We will continue close neurological follow-up for the patient during this admission. Case was discussed at length with the patient and her daughter at bedside. All of their questions were answered. They're aware of her guarded condition.
[2016-12-20] MEDS: LEVOTHYROXINE 88 MCG TAB PO SCH (06:26)
[2016-12-20 07:03] LABS: Basophils % (A) 1 %; CH 30.5; CHCM 32.5; Eosinophils # (A) 0.3 k/uL (0-0.7); Eosinophils % (A) 6 %; HCT 40.9 % (34.0-46.0); HDW 2.54; HGB 12.8 gm/dL (11.4-16.0); Luc # (Auto) 0.12; Luc % (Auto) 3; Lymphocytes # (A) 1.4 k/uL (1.0-4.8); Lymphocytes % (A) 32 %; MCH 29.5 pg (25.0-35.0); MCHC 31.3 g/dL (31.0-37.0); MCV 94.2 fL (80.0-100.0); Mean Platelet Volume 6.6; Monocytes # (A) 0.2 k/uL (0-1.0); Monocytes % (A) 5 %; Neutrophils # (A) 2.4 k/uL (1.3-7.7); Neutrophils % (A) 54 %; RBC 4.34 m/uL (3.80-5.40); RDW 13.8 % (11.5-15.5); WBC 4.4 k/uL (3.8-10.6); WBC (Perox) 4.51
[2016-12-20 07:18] LABS: Calcium 9.1 mg/dL (8.4-10.2); Potassium 4.1 mmol/L (3.5-5.1); Total Bilirubin 0.7 mg/dL (0.2-1.3); Total Protein 6.4 g/dL (6.3-8.2)
[2016-12-20] MEDS: SODIUM CHLORIDE 0.9% 1,000 ML IV SCH ×2 (08:51→22:52)
[2016-12-20] MEDS: ISOSORBIDE MONONITRATE ER 30 MG TAB.ER.24H PO SCH (08:52)
[2016-12-20] MEDS: PROLENSA 0.07% BOTH EYES SCH (08:52)
[2016-12-20] MEDS: NICOTINE 21MG/24HR PATCH TRANSDERM SCH (08:52)
[2016-12-20] MEDS: amLODIPine 2.5 MG TAB PO SCH (08:52)
[2016-12-20] MEDS: FAMOTIDINE 20 MG TAB PO SCH (08:52)
[2016-12-20] MEDS: ENOXAPARIN 40 MG/0.4 ML SYRINGE SQ SCH (08:52)
[2016-12-20] MEDS: LISINOPRIL 10 MG TAB PO SCH ×2 (08:52→20:45)
[2016-12-20] MEDS: ASPIRIN 325 MG TAB PO SCH (08:52)
--- NOTE | 2016-12-20 11:58 | P.PN ---
Subjective 76-year-old female being seen currently sitting up in bed does not appear in any acute distress. Patient was initially admitted with acute mental status changes with right side weakness. The MRI results reviewed indicates a 1.8 cm acute stroke involving the left thalamus patient continues to have expressive aphasia with right side weakness. Currently this morning the patient is sitting up in bed is alert and oriented to self and place there's a noted improvement in patient's mentation the continues to have weakness involving the right upper and lower extremity compared to the left side PT OT has been participating in the plan of care Objective - Vital Signs Vital signs: Vital Signs Temp 97.2 F L 12/20/16 08:00 Pulse 68 12/20/16 08:00 Resp 20 12/20/16 04:00 BP 152/99 12/20/16 08:00 Pulse Ox 94 L 12/20/16 08:00 Intake & Output 12/19/16 12/20/16 12/20/16 17:59 06:59 18:59 Intake Total Balance Weight Intake: Oral Other: Voiding Method Diaper # Voids - Exam Physical exam 76-year-old female sitting up in bed more awake and alert oriented to self and place speech slow but audible Lungs essentially clear on room air Heart S1-S2 audible and regular monitor sinus Abdomen soft nontender incontinently urine not distended Extremities able to move the right upper and lower extremity to simple commands weakness on the right persist thigh length DUANE hose in place - Labs CBC & Chem 7: 12/20/16 06:27 12/20/16 06:27 Labs: Abnormal Lab Results - Last 24 Hours (Table) 12/20/16 Range/Units 06:27 Sodium 147 H (137-145) mmol/L Chloride 114 H (98-107) mmol/L BUN 26 H (7-17) mg/dL Creatinine 1.20 H (0.52-1.04) mg/dL Microbiology - Last 24 Hours (Table) 12/18/16 02:55 Blood Culture - Preliminary Blood No Growth after 48 hours Assessment and Plan Plan: Impression and plan #1 stroke with right sided weakness and aphasia improving significantly since yesterday. Echo cardiogram and carotid Doppler was without significant abnormality, patient was evaluated by neurology MRI of the brain was ordered. #2 urinary tract infection maintained on IV Rocephin, urine culture revealing gram-negative bacilli, sensitivity Rocephin appropriate #3 tobacco abuse patient was counseled in regard to smoking cessation she has a nicotine patch at this time. #4 hypertension with hypertensive emergency on presentation, likely due to missing taking her blood pressure medications, blood pressure is better controlled at this time. #5 swallow evaluation done yesterday and patient was started on soft diet. #6 acute ischemic left MCA stroke as evident on MRI of the brain #7 Acute encephalopathy #8 aspiration precautions Discharge plan and progress patient would benefit from subacute rehab The above dictated assessment and findings were discussed with dr garcia Impression and the plan of care have been dictated as directed. Jessie Jim nurse practitioner acting as a scribe for dr garcia
--- NOTE | 2016-12-20 16:04 | P.PN ---
Subjective This patient is a 76-year-old female who was seen yesterday on neurology consultation for evaluation of mental status changes and right-sided weakness. She was seen in the ER and underwent a computed tomography scan of the brain which failed to reveal any acute stroke or hemorrhage. She was subsequent admitted to the hospital for a complete stroke evaluation. Patient underwent MRI of the brain today the results of which were reviewed. MRI indicates a 1.8 cm acute stroke involving the left thalamus. There was evidence of a stable posterior fossa mass most typical of meningioma which apparently is not changed from previous MRI of the brain. There is also extensive degenerative white matter ischemic changes noted in both hemispheres. Results of the MRI were reviewed today with the patient and her daughter at bedside. According to the daughter she still shows evidence of expressive aphasia and right-sided hemiparesis. Patient will need ongoing PT/ OT evaluation and possible subacute rehab depending on her progress. Patient will most likely need subacute rehabilitation at the time of discharge. Patient continues to show slight improvement in overall mentation. Her speech is also slightly improved. She was able to take thickened foods today without any difficulty. We will await further recommendations from speech therapy. We recommend continue current stroke evaluation and treatment for this patient. We will continue close neurological follow-up for this patient during this admission. Objective - Vital Signs Vital signs: Vital Signs Temp 98.1 F 12/20/16 13:14 Pulse 103 H 12/20/16 13:14 Resp 18 12/20/16 13:14 BP 117/74 12/20/16 13:14 Pulse Ox 100 12/20/16 13:14 Intake & Output 12/19/16 12/20/16 12/20/16 17:59 06:59 18:59 Intake Total Balance Weight Intake: Oral Other: Voiding Method Diaper # Voids - Exam Physical examination: PHYSICAL EXAMINATION: Patient is resting comfortably in bed. VITAL SIGNS: Blood pressure is [129/78]. Heart rate is [72]. Respiration is [17] . Temperature is [98.7]. HEENT: Head is atraumatic, neck is supple, there were no carotid bruits. CHEST: Lungs are clear to auscultation and percussion. CARDIAC: S1, S2 normal rate and rhythm. There is no murmur. ABDOMEN: Soft and nontender. Bowel sounds are present. EXTREMITIES: There is no pedal edema. Peripheral pulses are present. Neurological examination: Neurological examination is unchanged from yesterday. Patient continues to demonstrate evidence of mild expressive aphasia with right-sided hemiparesis. - Labs CBC & Chem 7: 12/20/16 06:27 12/20/16 06:27 Labs: Abnormal Lab Results - Last 24 Hours (Table) 12/20/16 Range/Units 06:27 Sodium 147 H (137-145) mmol/L Chloride 114 H (98-107) mmol/L BUN 26 H (7-17) mg/dL Creatinine 1.20 H (0.52-1.04) mg/dL Microbiology - Last 24 Hours (Table) 12/18/16 02:55 Blood Culture - Preliminary Blood No Growth after 48 hours Assessment and Plan (1) Acute ischemic left MCA stroke Status: Acute Code(s): I63.512 - CEREB INFRC D/T UNSP OCCLS OR STENOS OF LEFT MID CEREB ART (2) Acute encephalopathy Status: Acute Code(s): G93.40 - ENCEPHALOPATHY, UNSPECIFIED (3) Dehydration Status: Acute Code(s): E86.0 - DEHYDRATION (4) UTI (urinary tract infection) Status: Acute Code(s): N39.0 - URINARY TRACT INFECTION, SITE NOT SPECIFIED Plan: This patient is a 76-year-old female who was admitted to Hospital with symptoms of acute right-sided weakness. She was brought into the emergency room where she was evaluated in the ER by Dr. Gipson. A computed tomography scan of the brain was done and failed to reveal any evidence of acute stroke or hemorrhage. A code stroke was initiated but she was excluded for TPA by the neuro interventionalist. She was outside of the therapeutic window with no clear time of onset of symptoms. She underwent a CTA angiogram which failed to reveal any acute changes. Patient was admitted to Hospital. She continues to have evidence of aphasia and right-sided hemiparesis. We have recommended the patient undergo an MRI of the brain for further evaluation. She completed a MRI of the brain which was reviewed today with the daughter. MRI reveals evidence of any acute left thalamic infarct. There is also mention of a posterior fossa mass which is unchanged and represents a meningioma. Patient will need ongoing subacute rehab with PT/ OT evaluations. We discussed the MRI findings today in detail with the daughter at bedside. She is being treated for hypertensive urgency as well as a urinary tract infection. These factors also are contributing to her acute encephalopathy. We will continue close neurological follow-up for the patient during this admission. Case was discussed at length with the patient and her daughter at bedside. All of their questions were answered. They are aware of her guarded condition. Patient will be awaiting possible subacute rehab placement early next week. She is showing slight improvement since her initial stroke presentation. We will continue to work with the physical therapist and occupational therapist and further assessment and treatment. Patient also showing improvement in her speech today. Her overall prognosis at this time remains guarded.
[2016-12-20 20:43] VITALS: RESP 16
[2016-12-20] MEDS: PRAVASTATIN SODIUM 40 MG TAB PO SCH (20:45)
[2016-12-21] MEDS: SODIUM CHLORIDE 0.9% 1,000 ML IV SCH ×2 (05:35→10:22)
[2016-12-21] MEDS: NICOTINE 21MG/24HR PATCH TRANSDERM SCH (07:49)
[2016-12-21] MEDS: ENOXAPARIN 40 MG/0.4 ML SYRINGE SQ SCH (07:49)
[2016-12-21] MEDS: amLODIPine 2.5 MG TAB PO SCH (07:49)
[2016-12-21] MEDS: ASPIRIN 325 MG TAB PO SCH (07:49)
[2016-12-21] MEDS: LEVOTHYROXINE 88 MCG TAB PO SCH (07:49)
[2016-12-21] MEDS: FAMOTIDINE 20 MG TAB PO SCH (07:49)
[2016-12-21] MEDS: PROLENSA 0.07% BOTH EYES SCH (07:49)
[2016-12-21] MEDS: LISINOPRIL 10 MG TAB PO SCH (07:49)
[2016-12-21] MEDS: ISOSORBIDE MONONITRATE ER 30 MG TAB.ER.24H PO SCH (07:49)
[2016-12-21 08:08] VITALS: PULSE 79; TEMP 97.2
[2016-12-21 08:10] LABS: Basophils % (A) 1 %; CH 30.7; CHCM 33.2; Eosinophils # (A) 0.2 k/uL (0-0.7); Eosinophils % (A) 5 %; HCT 45.2 % (34.0-46.0); HDW 2.66; HGB 14.7 gm/dL (11.4-16.0); Luc # (Auto) 0.15; Luc % (Auto) 3; Lymphocytes # (A) 1.1 k/uL (1.0-4.8); Lymphocytes % (A) 25 %; MCH 30.1 pg (25.0-35.0); MCHC 32.5 g/dL (31.0-37.0); MCV 92.8 fL (80.0-100.0); Mean Platelet Volume 6.6; Monocytes # (A) 0.2 k/uL (0-1.0); Monocytes % (A) 4 %; Neutrophils # (A) 2.8 k/uL (1.3-7.7); Neutrophils % (A) 62 %; RBC 4.87 m/uL (3.80-5.40); RDW 13.6 % (11.5-15.5); WBC 4.5 k/uL (3.8-10.6); WBC (Perox) 4.73
[2016-12-21 08:15] VITALS: BP 164/104
[2016-12-21] MEDS: hydrALAZINE HCL 20 MG/ML 1 ML VIAL IVP PRN (08:23)
[2016-12-21 08:25] LABS: ALT 21 U/L (9-52); AST 30 U/L (14-36); Alkaline Phosphatase 90 U/L (38-126); Anion Gap 13 mmol/L; Blood Urea Nitrogen 21 mg/dL (7-17); Calcium 9.3 mg/dL (8.4-10.2); Carbon Dioxide 24 mmol/L (22-30); Chloride 111 mmol/L (98-107); Glucose 82 mg/dL (74-99); Non-African American GFR(MDRD) 58 (>60 ml/min/1.73 sqM); Potassium 3.9 mmol/L (3.5-5.1); Sodium 148 mmol/L (137-145); Total Bilirubin 0.9 mg/dL (0.2-1.3); Total Protein 7.5 g/dL (6.3-8.2)
--- NOTE | 2016-12-21 12:20 | P.DS ---
Providers Date of admission: 12/17/16 18:34 Expected date of discharge: 12/21/16 Attending physician: Norma Cruz Consults: Dr. Torres Primary care physician: Norma Cruz [facility] Course: discharge diagnosis 1. Acute ischemic left MCA stroke likely secondary to elevated And uncontrolled blood pressures 2. Acute metabolic encephalopathy secondary to stroke and UTI 3. UTI: Urine culture growing E. coli. Patient completed antibiotic treatment with Rocephin for 5 days 4. Essential hypertension with uncontrolled blood pressures. Norvasc increased to 5 mg daily. Continue lisinopril 10 twice a day 5. Hypertensive emergency on admission 6. Acute kidney injury secondary to dehydration. Improved with IV fluids 7. Dementia 8. Hyperlipidemia 9. Nicotine dependence 10. Hypothyroidism 11. History of LA and coronary artery disease Hospital course This is a 76-year-old female with a known past medical history of previous CVA, myocardial infarction, dementia, hyperlipidemia, hypertension, hypothyroidism and coronary artery disease. Patient is a poor historian. She is unable to speak. Most of history came from the chart. Patient was brought into the emergency room secondary to altered mental status changes as well as right- sided weakness facial droop and slurred speech. There were concerns for possible stroke. She was admitted to the telemetry floor. Neurology has been consulted computed tomography scan of the brain shows cerebral atrophy and chronic small vessel ischemia. Old lacunar infarct anterior right internal capsule. No acute intracranial abnormality. She was placed on a full aspirin. She is also had a carotid ultrasound showing no significant hemodynamic stenosis. Echo shows an EF of 55-60% with severe left ventricle hypertrophy. Patient had hypertensive emergency with a blood pressure of 258/133 on admission. Currently receiving IV hydralazine as needed. Patient also had evidence of a UTI and has been started on Rocephin. Patient completed antibiotic treatment for her UTI during her hospitalization. Patient did have an MRI of the brain that did reveal evidence of acute ischemic left filmlike infarct. There is also mention of a posterior fossa mass which is unchanged and represents a meningioma per neurology. patient is on a full aspirin daily as well as a statin.she's had some improvement in her speech. Still having some weakness on the right side. Patient is stable for discharge. Patient will go to [facility] for rehabilitation. Dr. Mendes will follow at [facility] Patient Condition at Discharge: Stable Plan - Discharge Summary Discharge Medication List Ergocalciferol [Vitamin D2 (DRISDOL)] 50,000 unit PO Q7D 12/17/16 [History] HYDROcodone/APAP 5-325MG [[place] 5-325] 2 tab PO Q4HR PRN 12/17/16 [History] Isosorbide Mononitrate ER [Imdur] 30 mg PO DAILY 12/17/16 [History] Levothyroxine Sodium [Synthroid] 88 mcg PO DAILY 12/17/16 [History] Lisinopril [Zestril] 10 mg PO BID 12/17/16 [History] Pravastatin Sodium [Pravachol] 40 mg PO HS 12/17/16 [History] Prolensa 1 bottle OPHTHALMIC DAILY 12/18/16 [History] Aspirin 325 mg PO DAILY tab 12/21/16 [Rx] Nicotine 21Mg/24Hr Patch [Habitrol] 1 patch TRANSDERM DAILY patch 12/21/16 [Rx] amLODIPine [Norvasc] 5 mg PO DAILY #0 12/21/16 [Rx] Follow up Appointment(s)/Referral(s): Norma Cruz MD [Primary Care Provider] - 1 Week Activity/Diet/Wound Care/Special Instructions: Diet: cardiac Activity: as tolerated ok to d/c to [facility]. Dr. Mendes to follow at [facility] Discharge Disposition: TRANSFER TO SNF/ECF
--- NOTE | 2016-12-22 10:09 | EEG ---
DATE OF SERVICE: 12/21/2016 INDICATIONS FOR EXAMINATION: This patient is a 76 -year-old female who suffered acute left thalamic stroke. Patient with right sided hemiparesis and slurred speech. AGE: 76Y EEG FINDINGS: A routine 21 channel awake digital EEG recording was accomplished utilizing the 10-20 international system with bipolar and referential montages. The background activity in the most alert resting state consists of a low to medium amplitude, poorly developed and poorly sustained 5 Hz activity over the posterior head regions. This posterior rhythm attenuates minimally to eye opening. There is a small amount of low amplitude 18-20 Hz beta activity seen maximally over the anterior head regions. Muscle and movement artifacts was observed on a few occasions during the tracing. Hyperventilation was not performed. Photic stimulation at flash frequencies of 2-30 Hz produced a minimal occipital driving response. No epileptiform discharges were seen. IMPRESSION: This EEG gives evidence of a severe widespread diffuse disturbance in cerebral function. The EEG failed to reveal any focal, lateralized or epileptiform abnormalities. If clinically indicated, a follow-up EEG is recommended. Clinical correlation is recommended.
== END 2016-12-21 16:40 | DRG 64 ==
LOC: EC 17:10 → 6SEL 18:34 → 5MS5E 12-20 13:25
PROVIDERS: ADMIT Internal Medicine; ATTEND Internal Medicine
DX: I63.512 Cerebral infarction due to unspecified occlusion or stenosis of left middle cerebral artery (principal); G93.41 Metabolic encephalopathy; N17.9 Acute kidney failure, unspecified; N39.0 Urinary tract infection, site not specified; I16.1 Hypertensive emergency; G81.91 Hemiplegia, unspecified affecting right dominant side; E86.0 Dehydration; R47.01 Aphasia; R47.1 Dysarthria and anarthria; R29.810 Facial weakness; B96.20 Unspecified Escherichia coli [E. coli] as the cause of diseases classified elsewhere; I10 Essential (primary) hypertension; I44.0 Atrioventricular block, first degree; F03.90 Unspecified dementia, unspecified severity, without behavioral disturbance, psychotic disturbance, mood disturbance, and anxiety; D32.0 Benign neoplasm of cerebral meninges; E78.5 Hyperlipidemia, unspecified; E03.9 Hypothyroidism, unspecified; I25.2 Old myocardial infarction; I25.10 Atherosclerotic heart disease of native coronary artery without angina pectoris; M19.90 Unspecified osteoarthritis, unspecified site; K21.9 Gastro-esophageal reflux disease without esophagitis; I51.7 Cardiomegaly; F17.200 Nicotine dependence, unspecified, uncomplicated; Z86.73 Personal history of transient ischemic attack (TIA), and cerebral infarction without residual deficits; Z95.5 Presence of coronary angioplasty implant and graft; Z79.899 Other long term (current) drug therapy
CPT/HCPCS: 36415; 70450; 70496; 70498; 70553; 71010; 80053; 80061; 81001; 82550; 82553; 83605; 83735; 84100; 84484; 85025; 85610; 85730; 87040; 87077; 87086; 87186; 93005; 93306; 93880; 95816; 96361; 96374; 99291

== ENCOUNTER 2017-01-15 14:12 | Inpatient (IN) | payer MEDICARE, OTHER ==
[2017-01-15] MEDS ORDERED: SODIUM CHLORIDE 0.9% 1,000 ML IV STA (14:20)
--- NOTE | 2017-01-15 14:45 | ED ---
General Adult HPI - General Chief complaint: Recheck/Abnormal Lab/Rx Stated complaint: Abnormal Labs Time Seen by Provider: 01/15/17 14:16 Source: patient, EMS, RN notes reviewed Mode of arrival: EMS - History of Present Illness Initial comments: 76-year-old female with history of CVA, dementia, SUDARSHAN, hypernatremia presenting for abnormal lab work. Patient was sent for noted worsening of hypernatremia from labs earlier today. She was sent from [facility]. Pt with dementia and unable to provide much history. She is currently awake and alert and pleasantly demented, but not oriented to time or place. She denies any active symptoms. - Related Data Home Medications Medication Instructions Recorded Confirmed Ergocalciferol [Vitamin D2 50,000 unit PO MO 12/17/16 01/15/17 (DRISDOL)] Isosorbide Mononitrate ER [Imdur] 30 mg PO DAILY@0800 12/17/16 01/15/17 Levothyroxine Sodium [Synthroid] 88 mcg PO DAILY@0600 12/17/16 01/15/17 Pravastatin Sodium [Pravachol] 40 mg PO HS@2100 12/17/16 01/15/17 Prolensa 1 drop BOTH EYES DAILY@0800 12/18/16 01/15/17 Aspirin 325 mg PO DAILY@1700 01/15/17 01/15/17 Bisacodyl [Dulcolax] 10 mg RECTAL DAILY PRN 01/15/17 01/15/17 [place] Instant Breakfast 1 packet PO TID-W/MEALS 01/15/17 01/15/17 Magnesium Hydroxide [Milk of 2,400 mg PO DAILY PRN 01/15/17 01/15/17 Magnesia] Menthol/Zinc Oxide [Calmoseptine 1 applic TOPICAL BID 01/15/17 01/15/17 Ointment] Na Phos,M-B/Na Phos,Di-Ba [Fleet 133 ml RECTAL DAILY PRN 01/15/17 01/15/17 Adult] SILVER sulfADIAZINE Cream 1 applic TOPICAL BID 01/15/17 01/15/17 [Silvadene Cream] amLODIPine [Norvasc] 5 mg PO HS@2130 01/15/17 01/15/17 Previous Rx's Medication Instructions Recorded Nicotine 21Mg/24Hr Patch [Habitrol] 1 patch TRANSDERM DAILY patch 12/21/16 Allergies Allergy/AdvReac Type Severity Reaction Status Date / Time nickel Allergy Unknown Verified 01/15/17 14:47 Review of Systems ROS Statement: Those systems with pertinent positive or pertinent negative responses have been documented in the HPI. ROS Other: All systems not noted in ROS Statement are negative. Limitations: ROS unobtainable due to patients medical condition (dementia) Past Medical History Past Medical History: Coronary Artery Disease (CAD), Chest Pain / Angina, CVA/ TIA, Dementia, GERD/Reflux, Hyperlipidemia, Hypertension, Memory Impairment, Myocardial Infarction ([place]), Osteoarthritis (OA), Pneumonia, Thyroid Disorder Last Myocardial Infarction Date:: 2006 History of Any Multi-Drug Resistant Organisms: None Reported Past Surgical History: Breast Surgery, Heart Catheterization With Stent, Tubal Ligation Additional Past Surgical History / Comment(s): cataract surgery, AAA surgery, breast lumps removed Past Anesthesia/Blood Transfusion Reactions: No Reported Reaction Date of Last Stent Placement:: 2006 Past Psychological History: No Psychological Hx Reported, Depression Smoking Status: Current every day smoker Past Alcohol Use History: None Reported Past Drug Use History: None Reported - Past Family History Father Additional Family Medical History / Comment(s): alcoholic, AAA Mother Family Medical History: Memory Impairment Additional Family Medical History / Comment(s): from Alzheimers General Exam - General Exam Comments Initial Comments: General: Awake and Alert. No acute distress. Does not appear acutely ill. Eyes: CRISTINA, EOM intact. No nystagmus. No scleral icterus. HENT: Atraumatic, normocephalic. Mucous membranes moist. Trachea midline. Neck: The neck is supple, there is no tenderness or JVD. Cardiovascular: Regular rate and rhythm. No murmur, rub, or gallop is appreciated. Distal pulses intact. Respiratory: Lungs are clear to auscultation bilaterally. No wheezes, rales, rhonchi. No respiratory distress. Gastrointestinal: Soft, Nontender. No rebound or guarding. Non-distended. No masses or organomegaly noted. No CVA tenderness. Musculoskeletal: No tenderness. Normal ROM. No gross deformity. No strength deficits. Neurological: A&Ox1. CN II-XII grossly intact, There are no obvious motor or sensory deficits. Coordination appears grossly intact. Speech is normal. Skin: Skin is warm and dry and no rashes or lesions are noted. Psychiatric: Cooperative, appropriate mood & affect, normal judgment. Course Vital Signs 01/15/17 01/15/17 14:16 16:15 Temperature 98.7 F 98.4 F Pulse Rate 90 87 Respiratory 20 20 Rate Blood Pressure 119/70 136/79 O2 Sat by Pulse 96 94 L Oximetry EKG Findings - EKG Comments: EKG Findings:: EKG 14:40. Normal sinus rhythm. Rate 89. MS 150. QRS 82. QT/ QTC 368/447. Left axis deviation. No STEMI. Nonspecific EKG. Similar to prior EKG 12/17/2016. Medical Decision Making - Medical Decision Making 76-year-old female with history of CVA and dementia and hypernatremia presenting for abnormal labs. Labs from earlier today were reviewed with evidence of significant hypernatremia and hyperchloremia. Patient was started on conservative IV fluid with 0.9NS. Consideration this is likely secondary to hypovolemia and SUDARSHAN due to dementia history and presumed poor PO intake. Patient is unable to provide much history on exam. She does not appear to be acutely altered at this time, just pleasantly demented. She follows commands appropriately. Patient will require inpatient management of her significant electrolytes abnormalities. CXR no acute process CBC stable. BMP with significant abnormality and SUDARSHAN. UA with evidence of infection, started on Rocephin, culture sent I discussed with Dr. Mendse. States he's been taking care of her for the last several days. He states that he thought she may have been hypovolemic as well and had put her on normal saline for the past 24 hours. Repeat labs today had only had worsening of her hypernatremia. He recommends D5W, which was started, and admission to ICU with q4hr labs. Requests consult to Dr. Vargas and Dr. Mendieta. I called and updated Dr. Mendieta on ICU placement. - Lab Data Result diagrams: 01/15/17 14:40 01/15/17 14:40 Lab Results 01/15/17 01/15/17 01/15/17 Range/Units 14:40 14:40 14:40 WBC 6.8 (3.8-10.6) k/uL RBC 4.38 (3.80-5.40) m/uL Hgb 13.6 (11.4-16.0) gm/dL Hct 42.2 (34.0-46.0) % MCV 96.4 (80.0-100.0) fL MCH 30.9 (25.0-35.0) pg MCHC 32.1 (31.0-37.0) g/dL RDW 14.1 (11.5-15.5) % Plt Count 151 (150-450) k/uL Neutrophils % 70 % Lymphocytes % 20 % Monocytes % 5 % Eosinophils % 3 % Basophils % 0 % Neutrophils # 4.7 (1.3-7.7) k/uL Lymphocytes # 1.4 (1.0-4.8) k/uL Monocytes # 0.3 (0-1.0) k/uL Eosinophils # 0.2 (0-0.7) k/uL Basophils # 0.0 (0-0.2) k/uL Sodium 162 H* (137-145) mmol/L Potassium 4.2 (3.5-5.1) mmol/L Chloride 124 H* (98-107) mmol/L Carbon Dioxide 26 (22-30) mmol/L Anion Gap 12 mmol/L BUN 71 H (7-17) mg/dL Creatinine 1.38 H (0.52-1.04) mg/dL Est GFR (MDRD) Af Amer 45 (>60 ml/min/1.73 sqM) Est GFR (MDRD) Non-Af 37 (>60 ml/min/1.73 sqM) Glucose 95 (74-99) mg/dL Calcium 9.5 (8.4-10.2) mg/dL Magnesium 2.5 H (1.6-2.3) mg/dL Total Bilirubin 0.6 (0.2-1.3) mg/dL AST 21 (14-36) U/L ALT 33 (9-52) U/L Alkaline Phosphatase 67 (38-126) U/L Troponin I (0.000-0.034) ng/mL NT-Pro-B Natriuret Pep 600 pg/mL Total Protein 6.7 (6.3-8.2) g/dL Albumin 3.6 (3.5-5.0) g/dL Urine Color Urine Appearance (Clear) Urine pH (5.0-8.0) Ur Specific Rufus (1.001-1.035) Urine Protein (Negative) Urine Glucose (UA) (Negative) Urine Ketones (Negative) Urine Blood (Negative) Urine Nitrite (Negative) Urine Bilirubin (Negative) Urine Urobilinogen (<2.0) mg/dL Ur Leukocyte Esterase (Negative) Urine RBC (0-5) /hpf Urine WBC (0-5) /hpf Urine WBC Clumps (None) /hpf Ur Squamous Epith Cells (0-4) /hpf Amorphous Sediment (None) /hpf Urine Bacteria (None) /hpf Urine Mucus (None) /hpf 01/15/17 01/15/17 Range/Units 14:40 14:50 WBC (3.8-10.6) k/uL RBC (3.80-5.40) m/uL Hgb (11.4-16.0) gm/dL Hct (34.0-46.0) % MCV (80.0-100.0) fL MCH (25.0-35.0) pg MCHC (31.0-37.0) g/dL RDW (11.5-15.5) % Plt Count (150-450) k/uL Neutrophils % % Lymphocytes % % Monocytes % % Eosinophils % % Basophils % % Neutrophils # (1.3-7.7) k/uL Lymphocytes # (1.0-4.8) k/uL Monocytes # (0-1.0) k/uL Eosinophils # (0-0.7) k/uL Basophils # (0-0.2) k/uL Sodium (137-145) mmol/L Potassium (3.5-5.1) mmol/L Chloride (98-107) mmol/L Carbon Dioxide (22-30) mmol/L Anion Gap mmol/L BUN (7-17) mg/dL Creatinine (0.52-1.04) mg/dL Est GFR (MDRD) Af Amer (>60 ml/min/1.73 sqM) Est GFR (MDRD) Non-Af (>60 ml/min/1.73 sqM) Glucose (74-99) mg/dL Calcium (8.4-10.2) mg/dL Magnesium (1.6-2.3) mg/dL Total Bilirubin (0.2-1.3) mg/dL AST (14-36) U/L ALT (9-52) U/L Alkaline Phosphatase (38-126) U/L Troponin I <0.012 (0.000-0.034) ng/mL NT-Pro-B Natriuret Pep pg/mL Total Protein (6.3-8.2) g/dL Albumin (3.5-5.0) g/dL Urine Color Yellow Urine Appearance Cloudy H (Clear) Urine pH 5.5 (5.0-8.0) Ur Specific Rufus 1.018 (1.001-1.035) Urine Protein Trace H (Negative) Urine Glucose (UA) Negative (Negative) Urine Ketones Negative (Negative) Urine Blood Trace H (Negative) Urine Nitrite Positive H (Negative) Urine Bilirubin Negative (Negative) Urine Urobilinogen <2.0 (<2.0) mg/dL Ur Leukocyte Esterase Large H (Negative) Urine RBC 2 (0-5) /hpf Urine WBC 73 H (0-5) /hpf Urine WBC Clumps Moderate H (None) /hpf Ur Squamous Epith Cells <1 (0-4) /hpf Amorphous Sediment Occasional H (None) /hpf Urine Bacteria Many H (None) /hpf Urine Mucus Rare H (None) /hpf - EKG Data -: EKG Interpreted by Me EKG shows normal: sinus rhythm Rate: normal When compared to previous EKG there are: no significant change Interpretation: no acute changes - Radiology Data Radiology results: report reviewed, image reviewed Disposition Clinical Impression: Hypernatremia, Hyperchloremia, SUDARSHAN (acute kidney injury), Dementia, UTI ( urinary tract infection) Disposition: ADMITTED IP TO THIS [facility] Condition: Stable Decision to Admit Reason: Admit from EC
[2017-01-15 14:56] LABS: Basophils % (A) 0 %; CH 30.6; CHCM 31.9; Eosinophils # (A) 0.2 k/uL (0-0.7); Eosinophils % (A) 3 %; HCT 42.2 % (34.0-46.0); HDW 2.53; HGB 13.6 gm/dL (11.4-16.0); Luc # (Auto) 0.17; Luc % (Auto) 3; Lymphocytes # (A) 1.4 k/uL (1.0-4.8); Lymphocytes % (A) 20 %; MCH 30.9 pg (25.0-35.0); MCHC 32.1 g/dL (31.0-37.0); MCV 96.4 fL (80.0-100.0); Mean Platelet Volume 7.8; Monocytes # (A) 0.3 k/uL (0-1.0); Monocytes % (A) 5 %; Neutrophils # (A) 4.7 k/uL (1.3-7.7); Neutrophils % (A) 70 %; RBC 4.38 m/uL (3.80-5.40); RDW 14.1 % (11.5-15.5); WBC 6.8 k/uL (3.8-10.6); WBC (Perox) 7.04
[2017-01-15 15:04] LABS: Amorphous Sediment,Urine Occasional /hpf; Appearance,Urine Cloudy (Clear); Bacteria,Urine Many /hpf; Bilirubin,Urine Negative (Negative); Glucose,Urine (UA) Negative (Negative); Ketones,Urine Negative (Negative); Leukocyte Esterase,Urine Large (Negative); Mucus,Urine Rare /hpf; Nitrite,Urine Positive (Negative); PH, Urine 5.5 (5.0-8.0); Particle Count 17302; Protein,Urine Trace (Negative); RBC,Urine 2 /hpf (0-5); Specific Gravity,Urine 1.018 (1.001-1.035); Squamous Epithelial Cell,Urine <1 /hpf (0-4); UA Billing (MACRO vs. MICRO) MICRO; Urobilinogen,Urine <2.0 mg/dL (<2.0); WBC,Urine 73 /hpf (0-5)
[2017-01-15 15:07] LABS: Calcium 9.5 mg/dL (8.4-10.2); Magnesium 2.5 mg/dL (1.6-2.3); Potassium 4.2 mmol/L (3.5-5.1); Total Bilirubin 0.6 mg/dL (0.2-1.3); Total Protein 6.7 g/dL (6.3-8.2)
--- NOTE | 2017-01-15 15:26 | XR ---
EXAMINATION TYPE: XR chest 2V DATE OF EXAM: 01/15/2017 3:15 PM COMPARISON: 12/17/2016 HISTORY: 76-year-old female with cough TECHNIQUE: AP and lateral views FINDINGS: The heart remains borderline enlarged. Elongation/tortuosity of the thoracic aorta. Diffuse interstit ial prominence is slightly improved from prior exam. No consolidation or pleural effusion seen. Mild anterior wedging of a midthoracic vertebral body is age indeterminate. IMPRESSION: Interstitial changes appear largely chronic. There may be a component of chronic bronchitis/asthma.
[2017-01-15] MEDS ORDERED: DEXTROSE 5% IN WATER 1,000 ML IV ONE (16:00)
[2017-01-15] MEDS ORDERED: ACETAMINOPHEN TAB 325 MG TAB PO PRN (16:01)
[2017-01-15] MEDS ORDERED: NALOXONE 0.4 MG/ML 1 ML VIAL IV PRN (16:01)
[2017-01-15 17:46] LABS: Glucose,Whole Blood 94 mg/dL (75-99)
[2017-01-15 20:22] LABS: Calcium 9.1 mg/dL (8.4-10.2); Potassium 3.8 mmol/L (3.5-5.1)
[2017-01-15] MEDS: HEPARIN SODIUM,PORCINE 5,000 UNIT/ML 1 ML VIAL SQ SCH (21:03)
[2017-01-16 00:52] LABS: Anion Gap 10 mmol/L; Blood Urea Nitrogen 64 mg/dL (7-17); Carbon Dioxide 22 mmol/L (22-30); Glucose 140 mg/dL (74-99); Non-African American GFR(MDRD) 54 (>60 ml/min/1.73 sqM); Sodium 157 mmol/L (137-145)
[2017-01-16 00:59] LABS: Chloride 125 mmol/L (98-107)
[2017-01-16 05:39] LABS: Anion Gap 11 mmol/L; Blood Urea Nitrogen 61 mg/dL (7-17); Calcium 9.1 mg/dL (8.4-10.2); Carbon Dioxide 21 mmol/L (22-30); Glucose 122 mg/dL (74-99); Non-African American GFR(MDRD) 54 (>60 ml/min/1.73 sqM); Potassium 3.9 mmol/L (3.5-5.1); Sodium 156 mmol/L (137-145)
[2017-01-16 05:55] LABS: Chloride 124 mmol/L (98-107)
[2017-01-16] MEDS ORDERED: DEXTROSE 5% IN WATER 1,000 ML IV ONE (07:52)
[2017-01-16] MEDS: HEPARIN SODIUM,PORCINE 5,000 UNIT/ML 1 ML VIAL SQ SCH ×2 (08:05→21:14)
[2017-01-16 08:27] LABS: Basophils % (A) 0 %; CH 30.8; CHCM 32.1; Eosinophils # (A) 0.2 k/uL (0-0.7); Eosinophils % (A) 3 %; HCT 41.6 % (34.0-46.0); HGB 13.1 gm/dL (11.4-16.0); Luc % (Auto) 2; Lymphocytes # (A) 1.2 k/uL (1.0-4.8); Lymphocytes % (A) 22 %; MCH 30.2 pg (25.0-35.0); MCHC 31.4 g/dL (31.0-37.0); MCV 96.3 fL (80.0-100.0); Mean Platelet Volume 7.7; Monocytes # (A) 0.2 k/uL (0-1.0); Monocytes % (A) 4 %; Neutrophils % (A) 69 %; RBC 4.33 m/uL (3.80-5.40); WBC 5.8 k/uL (3.8-10.6); WBC (Perox) 6.15
[2017-01-16 08:45] LABS: Anion Gap 10 mmol/L; Blood Urea Nitrogen 55 mg/dL (7-17); Calcium 9.2 mg/dL (8.4-10.2); Carbon Dioxide 25 mmol/L (22-30); Glucose 111 mg/dL (74-99); Magnesium 2.2 mg/dL (1.6-2.3); Non-African American GFR(MDRD) 54 (>60 ml/min/1.73 sqM); Phosphorous 3.1 mg/dL (2.5-4.5); Potassium 3.9 mmol/L (3.5-5.1); Sodium 155 mmol/L (137-145)
[2017-01-16 08:54] LABS: Chloride 120 mmol/L (98-107)
[2017-01-16] MEDS: amLODIPine 5 MG TAB PO SCH (09:54)
[2017-01-16] MEDS: ISOSORBIDE MONONITRATE ER 30 MG TAB.ER.24H PO SCH (09:54)
--- NOTE | 2017-01-16 10:07 | P.NPCON ---
History of Present Illness - Reason for Consult Consult date: 01/16/17 hypernatremia - Chief Complaint worsening of confusion, abnormal labs - History of Present Illness 76-year-old female with history of CVA supposedly recent few weeks ago but not admitted to this hospital but elsewhere, dementia with ability to follow commands but unable to recognize places at baseline supposedly since the recent CVA , SUDARSHAN, hypernatremia presenting for abnormal lab work. Patient was sent for noted worsening of hypernatremia from labs earlier today. She was sent from custodial. Pt with dementia and unable to provide much history. She is currently awake and alert and pleasantly demented, but not oriented to time or place. She denies any active symptoms. She is following commands. Moves all her extremities. Other than this she is not saying much. She is disoriented to time place and person She is known with coronary artery disease, previous ID, hyperlipidemia hypertension coronary artery stent AAA surgery and lumpectomy. Past Medical History Past Medical History: Coronary Artery Disease (CAD), Chest Pain / Angina, CVA/ TIA, Dementia, GERD/Reflux, Hyperlipidemia, Hypertension, Memory Impairment, Myocardial Infarction ([place]), Osteoarthritis (OA), Pneumonia, Thyroid Disorder Additional Past Medical History / Comment(s): UTI(E COLI),RT SIDED WEAKNESS( PAST CVA) Last Myocardial Infarction Date:: 2006 History of Any Multi-Drug Resistant Organisms: None Reported Past Surgical History: Breast Surgery, Heart Catheterization With Stent, Tubal Ligation Additional Past Surgical History / Comment(s): cataract surgery, AAA surgery, breast lumps removed Past Anesthesia/Blood Transfusion Reactions: No Reported Reaction Date of Last Stent Placement:: 2006 Past Psychological History: No Psychological Hx Reported, Depression Additional Psychological History / Comment(s): PT CURENTLY AT [facility] SINCE HOSPITALIZATION 12-17-16,NEEDS ASSIST TO W/C, PT FORGETFULL AND WILL TRY TO GET UP ON HER OWN. FAMILY STATED CHOKES EASILY SEE [facility] TRANSFER RECORD FOR DIET INSTRUCTIONS, . D/T DEMENTIA NO LONGER READS/WRITES, Smoking Status: Former smoker Past Alcohol Use History: None Reported Past Drug Use History: None Reported - Past Family History Father Additional Family Medical History / Comment(s): alcoholic, AAA Mother Family Medical History: Memory Impairment Additional Family Medical History / Comment(s): from Alzheimers Medications and Allergies Home Medications Medication Instructions Recorded Confirmed Type Ergocalciferol [Vitamin D2 50,000 unit PO MO 12/17/16 01/15/17 History (DRISDOL)] Isosorbide Mononitrate ER [Imdur] 30 mg PO DAILY@0800 12/17/16 01/15/17 History Levothyroxine Sodium [Synthroid] 88 mcg PO DAILY@0600 12/17/16 01/15/17 History Pravastatin Sodium [Pravachol] 40 mg PO HS@2100 12/17/16 01/15/17 History Prolensa 1 drop BOTH EYES DAILY@0800 12/18/16 01/15/17 History Aspirin 325 mg PO DAILY@1700 01/15/17 01/15/17 History Bisacodyl [Dulcolax] 10 mg RECTAL DAILY PRN 01/15/17 01/15/17 History [place] Instant Breakfast 1 packet PO TID-W/MEALS 01/15/17 01/15/17 History Magnesium Hydroxide [Milk of 2,400 mg PO DAILY PRN 01/15/17 01/15/17 History Magnesia] Menthol/Zinc Oxide [Calmoseptine 1 applic TOPICAL BID 01/15/17 01/15/17 History Ointment] Na Phos,M-B/Na Phos,Di-Ba [Fleet 133 ml RECTAL DAILY PRN 01/15/17 01/15/17 History Adult] SILVER sulfADIAZINE Cream 1 applic TOPICAL BID 01/15/17 01/15/17 History [Silvadene Cream] amLODIPine [Norvasc] 5 mg PO HS@2130 01/15/17 01/15/17 History Allergies Allergy/AdvReac Type Severity Reaction Status Date / Time nickel Allergy Unknown Verified 01/15/17 14:47 Physical Exam Vitals: Vital Signs Temp Pulse Resp BP Pulse Ox 01/16/17 09:00 66 15 201/91 94 L 01/16/17 08:00 97.7 F 64 15 168/103 93 L 01/16/17 06:00 74 13 149/93 96 01/16/17 05:00 64 11 L 155/87 96 01/16/17 04:00 98.3 F 67 13 146/81 95 01/16/17 03:00 72 15 147/89 94 L 01/16/17 02:00 69 16 146/89 94 L 01/16/17 01:00 71 10 L 141/91 95 01/16/17 00:00 98.3 F 73 12 141/88 95 01/15/17 23:00 79 14 133/89 95 01/15/17 22:00 80 15 137/86 94 L 01/15/17 21:00 85 15 141/90 96 01/15/17 20:00 98.3 F 89 15 148/92 96 01/15/17 19:00 89 9 L 129/95 93 L 01/15/17 18:00 78 25 H 162/86 95 01/15/17 17:45 81 95 01/15/17 17:41 98.3 F 94 15 162/86 01/15/17 17:09 88 18 138/89 92 L 01/15/17 16:15 98.4 F 87 20 136/79 94 L Intake and Output 01/15/17 01/16/17 01/16/17 22:59 06:59 14:59 Intake Total 150 Output Total 240 325 475 Balance -240 -325 -325 Intake: Intake, IV Titration 150 Amount Dextrose 5% in Water 1, 150 000 ml @ 75 mls/hr IV . [id number] ONE Rx#:[id number] Output: Urine 240 325 475 Other: Voiding Method Indwelling Catheter Indwelling Catheter Indwelling Catheter Weight 74.5 kg Currently on exam she has been given IV D5W she is awake alert follows commands and speaks monosyllables but she is disoriented in time place percent. HEENT exam no JVP neck is supple no facial asymmetry. Lungs are clear to auscultation good air entry bilaterally. A chest x-ray is normal. Heart sounds are unremarkable for any murmur rub gallop she is in normal sinus rhythm on the monitor. Abdomen is soft nontender no organomegaly status masses Abdomen scaphoid nondistended Extremity exam was no edema Neurologically awake alert follows all commands and moves all her extremities. She is disoriented in time patient percent. Results - Lab Results Most recent lab results Calcium 9.2 mg/dL (8.4-10.2) 01/16/17 08:05 Phosphorus 3.1 mg/dL (2.5-4.5) 01/16/17 08:05 Magnesium 2.2 mg/dL (1.6-2.3) 01/16/17 08:05 01/16/17 08:05 01/16/17 08:05 Assessment and Plan Plan: Impression. 1. Hyponatremia secondary to decreased fluid intake from dementia and custodial resident. Admission sodium is 162 creatinine 1.38 BUN 71, calcium is 9.5. Started on D5W 75 mL an hour as she is able to drink or unwilling to drink water. Most recent labs about an hour ago approximately show improvement of sodium to 155 creatinine is 0.9. She has orthostatic changes with blood pressure of 182/96 with a heart rate of 67 supine and on sitting up with feet down blood pressure went down to 165/100 with heart rate of 81. #2. Baseline dementia with confusion disorientation supposedly after the recent CVA a few weeks ago. 3. History of hypertension. Blood pressure is slightly about range but she is clinically volume depleted based on history as well as orthostatic changes. 4. History of coronary artery disease and stent in the past, 5. History of AAA repair in the past. Recommendation. 1. Change IV fluids from D5W to half-normal saline because of the orthostatic changes. We will keep the rate at 75 an hour. Her current water deficit is 3.75 L based on weight of 70 kg and the desired sodium of 140. Will try to correct her over the next 48 hours, if we corrected with free water alone we will need 78 mL/hr. 2. Repeat labs in about 4 hours after the about change in the maintain electrolyte monitoring every 8 hours until tomorrow.
--- NOTE | 2017-01-16 10:35 | P.CNPUL ---
History of Present Illness Consult date: 01/16/17 Requesting physician: Shady Mendes Reason for consult: other (Critical care management) Chief complaint: Hyper natremia History of present illness: This is a 76-year-old female patient who follows with Dr. Shon bray as her primary care physician. She has a history of hypertension, coronary artery disease, dementia, hyperlipidemia, hypertension, hypothyroidism, renal failure. She had also recently suffered a cerebrovascular accident and was here approximately a month ago. From there she was discharged to an extended care facility. Yesterday her lab work revealed hyper natremia and the patient was brought to the emergency room for the same. Her presenting sodium was 160 with a chloride of 126, BUN 65 creatinine 1.10. The patient herself is a poor historian with her underlying dementia. Her daughter is at the bedside today. She states that she does have periods where she does not eat or drink and other days where she eats and drinks well. This morning she is seen in consultation in the intensive care unit. She is alert. She denies any feelings of hunger or thirst. She did have sips of water for the nurse this morning. She swallowed well. She was receiving D5W at 75 mL per hour and her current sodium is 155. She's been seen and evaluated by nephrology who has since changed her IV daily 0.45 normal saline at 75 MLS per hour. Repeat blood tests in 4 hours. Her renal function has improved to 0.99 creatinine. There is no leukocytosis. She's been afebrile. Her urinalysis reveals suspected urinary tract infection, cultures pending. She did have issues with hypertension her Norvasc and Imdur have been resumed. Improved. She denies any shortness of breath, cough or congestion. She is maintaining O2 saturations in the mid 90s on room air. Review of Systems ROS unobtainable: due to mental status Past Medical History Past Medical History: Coronary Artery Disease (CAD), Chest Pain / Angina, CVA/ TIA, Dementia, GERD/Reflux, Hyperlipidemia, Hypertension, Memory Impairment, Myocardial Infarction ([place]), Osteoarthritis (OA), Pneumonia, Thyroid Disorder Additional Past Medical History / Comment(s): UTI(E COLI),RT SIDED WEAKNESS( PAST CVA) Last Myocardial Infarction Date:: 2006 History of Any Multi-Drug Resistant Organisms: None Reported Past Surgical History: Breast Surgery, Heart Catheterization With Stent, Tubal Ligation Additional Past Surgical History / Comment(s): cataract surgery, AAA surgery, breast lumps removed Past Anesthesia/Blood Transfusion Reactions: No Reported Reaction Date of Last Stent Placement:: 2006 Past Psychological History: No Psychological Hx Reported, Depression Additional Psychological History / Comment(s): PT CURENTLY AT [facility] SINCE HOSPITALIZATION 12-17-16,NEEDS ASSIST TO W/C, PT FORGETFULL AND WILL TRY TO GET UP ON HER OWN. FAMILY STATED CHOKES EASILY SEE [facility] TRANSFER RECORD FOR DIET INSTRUCTIONS, . D/T DEMENTIA NO LONGER READS/WRITES, Smoking Status: Former smoker Past Alcohol Use History: None Reported Past Drug Use History: None Reported - Past Family History Father Additional Family Medical History / Comment(s): alcoholic, AAA Mother Family Medical History: Memory Impairment Additional Family Medical History / Comment(s): from Alzheimers Medications and Allergies Home Medications Medication Instructions Recorded Confirmed Type Ergocalciferol [Vitamin D2 50,000 unit PO MO 12/17/16 01/15/17 History (HIRA)] Isosorbide Mononitrate ER [Imdur] 30 mg PO DAILY@0800 12/17/16 01/15/17 History Levothyroxine Sodium [Synthroid] 88 mcg PO DAILY@0600 12/17/16 01/15/17 History Pravastatin Sodium [Pravachol] 40 mg PO HS@2100 12/17/16 01/15/17 History Prolensa 1 drop BOTH EYES DAILY@0800 12/18/16 01/15/17 History Aspirin 325 mg PO DAILY@1700 01/15/17 01/15/17 History Bisacodyl [Dulcolax] 10 mg RECTAL DAILY PRN 01/15/17 01/15/17 History [place] Instant Breakfast 1 packet PO TID-W/MEALS 01/15/17 01/15/17 History Magnesium Hydroxide [Milk of 2,400 mg PO DAILY PRN 01/15/17 01/15/17 History Magnesia] Menthol/Zinc Oxide [Calmoseptine 1 applic TOPICAL BID 01/15/17 01/15/17 History Ointment] Na Phos,M-B/Na Phos,Di-Ba [Fleet 133 ml RECTAL DAILY PRN 01/15/17 01/15/17 History Adult] SILVER sulfADIAZINE Cream 1 applic TOPICAL BID 01/15/17 01/15/17 History [Silvadene Cream] amLODIPine [Norvasc] 5 mg PO HS@2130 01/15/17 01/15/17 History Allergies Allergy/AdvReac Type Severity Reaction Status Date / Time nickel Allergy Unknown Verified 01/15/17 14:47 Physical Exam Vitals: Vital Signs Temp Pulse Resp BP Pulse Ox 01/16/17 10:00 70 15 177/91 95 01/16/17 09:00 66 15 201/91 94 L 01/16/17 08:00 97.7 F 64 15 168/103 93 L 01/16/17 06:00 74 13 149/93 96 01/16/17 05:00 64 11 L 155/87 96 01/16/17 04:00 98.3 F 67 13 146/81 95 01/16/17 03:00 72 15 147/89 94 L 01/16/17 02:00 69 16 146/89 94 L 01/16/17 01:00 71 10 L 141/91 95 01/16/17 00:00 98.3 F 73 12 141/88 95 01/15/17 23:00 79 14 133/89 95 01/15/17 22:00 80 15 137/86 94 L 01/15/17 21:00 85 15 141/90 96 01/15/17 20:00 98.3 F 89 15 148/92 96 01/15/17 19:00 89 9 L 129/95 93 L 01/15/17 18:00 78 25 H 162/86 95 01/15/17 17:45 81 95 01/15/17 17:41 98.3 F 94 15 162/86 01/15/17 17:09 88 18 138/89 92 L 01/15/17 16:15 98.4 F 87 20 136/79 94 L Intake and Output 01/15/17 01/16/17 01/16/17 22:59 06:59 14:59 Intake Total 225 Output Total 240 325 475 Balance -240 -325 -250 Intake: IV 75 0.45 75 Intake, IV Titration 150 Amount Dextrose 5% in Water 1, 150 000 ml @ 75 mls/hr IV . [id number] ONE Rx#:[id number] Output: Urine 240 325 475 Other: Voiding Method Indwelling Catheter Indwelling Catheter Indwelling Catheter Weight 74.5 kg Results - Laboratory Findings CBC and BMP: 01/16/17 08:05 01/16/17 08:05 Abnormal lab findings: Abnormal Labs 01/15/17 01/16/17 01/16/17 19:38 00:21 04:04 Plt Count Sodium 160 H* 157 H 156 H Chloride 126 H* 125 H* 124 H* Carbon Dioxide 21 L BUN 65 H 64 H 61 H Creatinine 1.10 H Glucose 127 H 140 H 122 H 01/16/17 01/16/17 08:05 08:05 Plt Count 134 L Sodium 155 H Chloride 120 H* Carbon Dioxide BUN 55 H Creatinine Glucose 111 H - Diagnostic Findings Chest x-ray: image reviewed (Chronic changes without acute pulmonary process) Assessment and Plan Plan: Impression: #1 Hypernatremia secondary to suspected poor oral intake secondary to dementia. Initial sodium level 160. The patient was receiving D5W at 75 MLS per hour. Current sodium 155. IV solution has been changed to 0.45 normal saline at 75 mL per hour per nephrology. #2 Dementia with varying degrees of orientation and prolonged periods of declining oral intake. #3 Recent cerebrovascular accident approximately one month ago. #4 Hypertension. #5 History of coronary disease with previous stent placement. #6 Hyperlipidemia. #8 Hypothyroidism. #9 Gastroesophageal reflux disease. #10 Extended care facility resident. #11 Urinary tract infection, ID and sensitivity are pending. Plan: The patient was seen and evaluated by Dr. Mendieta. We'll continue with her current IV of 0.45 normal saline at 75 MLS per hour. We will await repeat lab work. The patient's overall prognosis remains quite poor. According to the daughter at the bedside they have had further discussions and are declining any PEG tube insertion. We'll continue to monitor her here in the intensive care unit until her sodium improves. She could possibly be transferred out later this afternoon. We'll continue Rocephin for her suspected urinary tract infection. We'll continue to follow. Time with Patient: Greater than 30
[2017-01-16] MEDS: SODIUM CHLORIDE 0.45% 1,000 ML IV SCH ×2 (11:03→21:18)
[2017-01-16 12:32] VITALS: BMI 28.1
[2017-01-16 13:10] LABS: Anion Gap 9 mmol/L; Blood Urea Nitrogen 49 mg/dL (7-17); Carbon Dioxide 22 mmol/L (22-30); Glucose 99 mg/dL (74-99); Non-African American GFR(MDRD) >60 (>60 ml/min/1.73 sqM); Potassium 3.8 mmol/L (3.5-5.1); Sodium 151 mmol/L (137-145)
[2017-01-16 13:28] LABS: Chloride 120 mmol/L (98-107)
[2017-01-16] MEDS ORDERED: Magnesium Replacement Protocol 1 EACH MISC MISCELLANE PRN (14:18)
[2017-01-16] MEDS ORDERED: Potassium Replacement Protocol 1 EACH MISC MISCELLANE PRN (14:18)
--- NOTE | 2017-01-16 14:22 | P.HPIM ---
History of Present Illness H&P Date: 01/16/17 Chief Complaint: Abnormal lab work This is a 76-year-old female with complex past medical history noted below significant for advanced vascular dementia that is chronically nonverbal. Patient was a resident at [facility] and was found to have abnormal lab work with worsening hypernatremia over the past week. Her sodium level was trending up slowly and gradually. Apparently patient was having poor by mouth intake and not hydrating herself sufficiently. She was started on [facility] fluids at the [facility] with normal saline at 75 per hour for 24 hours prior to her presentation to the emergency room. Her sodium level worsened from 159 to 164 so patient was sent to the emergency room for further evaluation. She is unable to provide any history. She is nonverbal and does not follow simple commands. She is currently in intensive care unit and her IV fluids were adjusted by the limousine and hearse upholsterer. Sodium level is improving gradually. She was found to have evidence of urinary tract infection on urinalysis Review of Systems Unable to review other system as patient's is nonverbal Past Medical History Past Medical History: Coronary Artery Disease (CAD), Chest Pain / Angina, CVA/ TIA, Dementia, GERD/Reflux, Hyperlipidemia, Hypertension, Memory Impairment, Myocardial Infarction ([place]), Osteoarthritis (OA), Pneumonia, Thyroid Disorder Additional Past Medical History / Comment(s): UTI(E COLI),RT SIDED WEAKNESS( PAST CVA) Last Myocardial Infarction Date:: 2006 History of Any Multi-Drug Resistant Organisms: None Reported Past Surgical History: Breast Surgery, Heart Catheterization With Stent, Tubal Ligation Additional Past Surgical History / Comment(s): cataract surgery, AAA surgery, breast lumps removed Past Anesthesia/Blood Transfusion Reactions: No Reported Reaction Date of Last Stent Placement:: 2006 Past Psychological History: No Psychological Hx Reported, Depression Additional Psychological History / Comment(s): PT CURENTLY AT [facility] SINCE HOSPITALIZATION 12-17-16,NEEDS ASSIST TO W/C, PT FORGETFULL AND WILL TRY TO GET UP ON HER OWN. FAMILY STATED CHOKES EASILY SEE [facility] TRANSFER RECORD FOR DIET INSTRUCTIONS, . D/T DEMENTIA NO LONGER READS/WRITES, Smoking Status: Former smoker Past Alcohol Use History: None Reported Past Drug Use History: None Reported - Past Family History Father Additional Family Medical History / Comment(s): alcoholic, AAA Mother Family Medical History: Memory Impairment Additional Family Medical History / Comment(s): from Alzheimers Medications and Allergies Home Medications Medication Instructions Recorded Confirmed Type Ergocalciferol [Vitamin D2 50,000 unit PO MO 12/17/16 01/15/17 History (DRISDOL)] Isosorbide Mononitrate ER [Imdur] 30 mg PO DAILY@0800 12/17/16 01/15/17 History Levothyroxine Sodium [Synthroid] 88 mcg PO DAILY@0600 12/17/16 01/15/17 History Pravastatin Sodium [Pravachol] 40 mg PO HS@2100 12/17/16 01/15/17 History Prolensa 1 drop BOTH EYES DAILY@0800 12/18/16 01/15/17 History Aspirin 325 mg PO DAILY@1700 01/15/17 01/15/17 History Bisacodyl [Dulcolax] 10 mg RECTAL DAILY PRN 01/15/17 01/15/17 History [place] Instant Breakfast 1 packet PO TID-W/MEALS 01/15/17 01/15/17 History Magnesium Hydroxide [Milk of 2,400 mg PO DAILY PRN 01/15/17 01/15/17 History Magnesia] Menthol/Zinc Oxide [Calmoseptine 1 applic TOPICAL BID 01/15/17 01/15/17 History Ointment] Na Phos,M-B/Na Phos,Di-Ba [Fleet 133 ml RECTAL DAILY PRN 01/15/17 01/15/17 History Adult] SILVER sulfADIAZINE Cream 1 applic TOPICAL BID 01/15/17 01/15/17 History [Silvadene Cream] amLODIPine [Norvasc] 5 mg PO HS@2130 01/15/17 01/15/17 History Allergies Allergy/AdvReac Type Severity Reaction Status Date / Time nickel Allergy Unknown Verified 01/15/17 14:47 Physical Exam Vitals: Vital Signs Temp Pulse Resp BP Pulse Ox 01/16/17 14:00 81 15 135/82 93 L 01/16/17 13:00 77 15 136/93 94 L 01/16/17 12:00 97.7 F 81 15 121/78 93 L 01/16/17 11:00 81 16 121/77 91 L 01/16/17 10:00 70 15 177/91 95 01/16/17 09:00 66 15 201/91 94 L 01/16/17 08:00 97.7 F 64 15 168/103 93 L 01/16/17 06:00 74 13 149/93 96 01/16/17 05:00 64 11 L 155/87 96 01/16/17 04:00 98.3 F 67 13 146/81 95 01/16/17 03:00 72 15 147/89 94 L 01/16/17 02:00 69 16 146/89 94 L 01/16/17 01:00 71 10 L 141/91 95 01/16/17 00:00 98.3 F 73 12 141/88 95 01/15/17 23:00 79 14 133/89 95 01/15/17 22:00 80 15 137/86 94 L 01/15/17 21:00 85 15 141/90 96 01/15/17 20:00 98.3 F 89 15 148/92 96 01/15/17 19:00 89 9 L 129/95 93 L 01/15/17 18:00 78 25 H 162/86 95 01/15/17 17:45 81 95 01/15/17 17:41 98.3 F 94 15 162/86 01/15/17 17:09 88 18 138/89 92 L 01/15/17 16:15 98.4 F 87 20 136/79 94 L Intake and Output 01/15/17 01/16/17 01/16/17 22:59 06:59 14:59 Intake Total 550 Output Total 240 325 635 Balance -240 -325 -85 Intake: IV 300 0.45 300 Intake, IV Titration 250 Amount Dextrose 5% in Water 1, 150 000 ml @ 75 mls/hr IV . [id number] ONE Rx#:[id number] cefTRIAXone 1,000 mg In 100 Sodium Chloride 0.9% 50 ml @ 100 mls/hr IVPB Q24HR [facility] Rx#:[id number] Output: Urine 240 325 635 Other: Voiding Method Indwelling Catheter Indwelling Catheter Indwelling Catheter Weight 74.5 kg 74.5 kg Patient Weight 01/17/17 06:59 Weight 74.5 kg General: The patient is awake and alert, in no distress Eye: there is normal conjunctiva bilaterally. Neck: The neck is supple, there is no JVD. Cardiovascular: Normal S1-S2, no S3-S4, no murmurs. Respiratory: Lungs clear to auscultation bilaterally Gastrointestinal: Abdomen is soft, nontender Musculoskeletal: There is no pedal edema. Skin: Skin is warm and dry Results CBC & Chem 7: 01/16/17 08:05 01/16/17 12:34 Labs: Abnormal Lab Results - Last 24 Hours (Table) 01/15/17 01/16/17 01/16/17 Range/Units 19:38 00:21 04:04 Plt Count (150-450) k/uL Sodium 160 H* 157 H 156 H (137-145) mmol/L Chloride 126 H* 125 H* 124 H* (98-107) mmol/L Carbon Dioxide 21 L (22-30) mmol/L BUN 65 H 64 H 61 H (7-17) mg/dL Creatinine 1.10 H (0.52-1.04) mg/dL Glucose 127 H 140 H 122 H (74-99) mg/dL 01/16/17 01/16/17 01/16/17 Range/Units 08:05 08:05 12:34 Plt Count 134 L (150-450) k/uL Sodium 155 H 151 H (137-145) mmol/L Chloride 120 H* 120 H* (98-107) mmol/L Carbon Dioxide (22-30) mmol/L BUN 55 H 49 H (7-17) mg/dL Creatinine (0.52-1.04) mg/dL Glucose 111 H (74-99) mg/dL Microbiology - Last 24 Hours (Table) 01/15/17 17:59 Urine Culture - Preliminary Urine,Catheterized Assessment and Plan Plan: 1. Hypovolemic hyponatremia: most likely secondary to poor by mouth intake. Continue IV fluid hydration. Nephrology following closely. 2. Uncomplicated urinary tract infection: Currently on IV ceftriaxone awaiting urine culture 3. Essential hypertension: Blood pressure well controlled. Lisinopril was discontinued with possible SIADH-like effect 4. Recent ischemic stroke involving the left MCA territory 5. Chronic vascular dementia, chronically nonverbal 6. Hypothyroidism, maintained on levothyroxin 7. DVT prophylaxis: Subcu heparin Today, I reviewed her lab work results and medication list. Continue current regimen. Repeat lab work as ordered in nephrology and daily. Replace electrolytes as needed. Continue ICU care. Appreciate child welfare consultant's recommendations. No family at bedside at this time to be updated.
[2017-01-16 21:26] LABS: Anion Gap 10 mmol/L; Blood Urea Nitrogen 46 mg/dL (7-17); Calcium 8.9 mg/dL (8.4-10.2); Carbon Dioxide 20 mmol/L (22-30); Chloride 119 mmol/L (98-107); Glucose 91 mg/dL (74-99); Non-African American GFR(MDRD) >60 (>60 ml/min/1.73 sqM); Potassium 3.8 mmol/L (3.5-5.1); Sodium 149 mmol/L (137-145)
[2017-01-17 08:42] LABS: Basophils % (A) 0 %; CH 30.9; CHCM 33.5; Eosinophils # (A) 0.2 k/uL (0-0.7); Eosinophils % (A) 3 %; HCT 39.2 % (34.0-46.0); HDW 2.83; HGB 12.8 gm/dL (11.4-16.0); Luc # (Auto) 0.11; Luc % (Auto) 2; Lymphocytes # (A) 1.4 k/uL (1.0-4.8); Lymphocytes % (A) 27 %; MCH 30.1 pg (25.0-35.0); MCHC 32.5 g/dL (31.0-37.0); MCV 92.3 fL (80.0-100.0); Mean Platelet Volume 7.3; Monocytes # (A) 0.3 k/uL (0-1.0); Monocytes % (A) 5 %; Neutrophils # (A) 3.5 k/uL (1.3-7.7); Neutrophils % (A) 64 %; RBC 4.25 m/uL (3.80-5.40); RDW 13.7 % (11.5-15.5); WBC 5.5 k/uL (3.8-10.6); WBC (Perox) 5.69
[2017-01-17] MEDS: amLODIPine 5 MG TAB PO SCH (08:47)
[2017-01-17] MEDS: ISOSORBIDE MONONITRATE ER 30 MG TAB.ER.24H PO SCH (08:47)
[2017-01-17] MEDS: HEPARIN SODIUM,PORCINE 5,000 UNIT/ML 1 ML VIAL SQ SCH ×2 (08:47→21:26)
[2017-01-17 08:55] LABS: ALT 35 U/L (9-52); AST 32 U/L (14-36); Alkaline Phosphatase 77 U/L (38-126); Anion Gap 11 mmol/L; Blood Urea Nitrogen 36 mg/dL (7-17); Calcium 8.9 mg/dL (8.4-10.2); Carbon Dioxide 25 mmol/L (22-30); Chloride 112 mmol/L (98-107); Glucose 80 mg/dL (74-99); Non-African American GFR(MDRD) >60 (>60 ml/min/1.73 sqM); Phosphorous 3.3 mg/dL (2.5-4.5); Potassium 3.3 mmol/L (3.5-5.1); Sodium 148 mmol/L (137-145); Total Protein 6.4 g/dL (6.3-8.2)
[2017-01-17] MEDS: SODIUM CHLORIDE 0.45% 1,000 ML IV SCH (11:39)
--- NOTE | 2017-01-17 14:04 | P.PN ---
Subjective Principal diagnosis: This is 76-year-old female with history of recent CVA, came in because of hyponatremia and urinary tract infection. She is being treated with IV fluids initially D5W but yesterday changed to half-normal saline because of volume depletion and orthostatic changes. She continues to improve as far as the labs are concerned with sodium coming down but mental status is about the same. She is able to follow COMMANDS but has difficulty with expressive dysphagia. There and seemed to be any focal motor deficit at this time. She has difficulty swallowing and her intake is poor. No nausea vomiting diarrhea abdominal pain no fever chills as best as one could obtain reliable history from her. Her 24-hour intake and output are not accurate. Vital signs are stable. Recently she was admitted in December 2016 last month with hypertensive emergency blood pressure was 258/133 on admission. On admission she had right-sided facial droop and slurred speech. Additionally at that a admission she had urine tract infection with E. coli and it seems to be growing again this time Objective - Vital Signs Vital signs: Vital Signs Temp 97.6 F 01/17/17 07:00 Pulse 64 01/17/17 07:00 Resp 19 01/17/17 07:00 BP 137/73 01/17/17 07:00 Pulse Ox 93 L 01/17/17 07:00 Intake & Output 01/16/17 01/17/17 01/17/17 18:59 06:59 18:59 Intake Total 700 0 Output Total 705 Balance -5 0 Weight 74.5 kg Intake: IV 450 0.45 450 Intake, IV Titration 250 Amount Dextrose 5% in Water 1, 150 000 ml @ 75 mls/hr IV . [id number] ONE Rx#:[id number] cefTRIAXone 1,000 mg In 100 Sodium Chloride 0.9% 50 ml @ 100 mls/hr IVPB Q24HR [facility] Rx#:[id number] Oral 0 Output: Urine 705 Other: Voiding Method Indwelling Catheter Diaper Diaper # Voids 0 # Bowel Movements 0 On examination she is pleasant and follows all commands. She is able to move all her extremities and does not seem to have any focal motor deficit. HEENT exam no JVP neck is supple no facial asymmetry Lungs are clear to auscultation percussion good air entry bilaterally Heart sounds are unremarkable for any murmur rub gallop Abdomen soft nontender no organomegaly status masses Extremity exam reveals no edema Neurologically awake alert orientation is difficult to assess because of expressive dysphagia. She is following all commands. - Labs CBC & Chem 7: 01/17/17 07:38 01/17/17 07:38 Labs: Abnormal Lab Results - Last 24 Hours (Table) 01/16/17 01/17/17 01/17/17 Range/Units 21:02 07:38 07:38 Plt Count 123 L (150-450) k/uL Sodium 149 H 148 H (137-145) mmol/L Potassium 3.3 L (3.5-5.1) mmol/L Chloride 119 H 112 H (98-107) mmol/L Carbon Dioxide 20 L (22-30) mmol/L BUN 46 H 36 H (7-17) mg/dL Albumin 3.4 L (3.5-5.0) g/dL Microbiology - Last 24 Hours (Table) 01/15/17 17:59 Urine Culture - Preliminary Urine,Catheterized Gram Neg Bacilli Assessment and Plan Plan: Impression. 1. Hyponatremia secondary to decreased fluid intake from dementia and is usually seen in care home resident. Admission sodium is 162 creatinine 1.38 BUN 71, calcium is 9.5. On admission she was Started on D5W 75 mL an hour as she is unable to drink or unwilling to drink water, she responded with improvement in her sodium down to 155 yesterday. Fluids were changed yesterday to half-normal saline because of orthostatic changes and she has continued to improve, sodium down to 148 and creatinine improved to 0.89. 2. Baseline dementia with confusion disorientation supposedly after the recent CVA a few weeks ago. Currently on today's exam she is following all commands but has expressive dysphagia 3. History of hypertension, hypertensive emergency December 2016 last month with blood pressure of 258/133 on admission. Blood pressure is on target today. 4. History of coronary artery disease and stent in the past, 5. History of AAA repair in the past. 6. Urine tract infection with a recurrence of UTI with E. coli, she had it in her December 2016 admission a month ago Recommendation. 1. Continue IV fluids half-normal saline. We will keep the rate at 75 an hour. 2. Repeat labs 3. Appropriate antibiotics for her UTI
--- NOTE | 2017-01-17 14:43 | P.PN ---
Subjective Patient is doing a lot better today. Her mentation is significantly improving. Objective - Vital Signs Vital signs: Vital Signs Temp 97.6 F 01/17/17 07:00 Pulse 64 01/17/17 07:00 Resp 19 01/17/17 07:00 BP 137/73 01/17/17 07:00 Pulse Ox 93 L 01/17/17 07:00 Intake & Output 01/16/17 01/17/17 01/17/17 18:59 06:59 18:59 Intake Total 700 0 Output Total 705 Balance -5 0 Weight 74.5 kg Intake: IV 450 0.45 450 Intake, IV Titration 250 Amount Dextrose 5% in Water 1, 150 000 ml @ 75 mls/hr IV . [id number] [facility] Rx#:[id number] cefTRIAXone 1,000 mg In 100 Sodium Chloride 0.9% 50 ml @ 100 mls/hr IVPB Q24HR [facility] Rx#:[id number] Oral 0 Output: Urine 705 Other: Voiding Method Indwelling Catheter Diaper Diaper # Voids 0 # Bowel Movements 0 - Exam General: The patient is awake and alert, in no distress Eye: there is normal conjunctiva bilaterally. Neck: The neck is supple, there is no JVD. Cardiovascular: Normal S1-S2, no S3-S4, no murmurs. Respiratory: Lungs clear to auscultation bilaterally Gastrointestinal: Abdomen is soft, nontender Musculoskeletal: There is no pedal edema. Neurological:. Speech is normal. Skin: Skin is warm and dry - Labs CBC & Chem 7: 01/17/17 07:38 01/17/17 07:38 Labs: Abnormal Lab Results - Last 24 Hours (Table) 01/16/17 01/17/17 01/17/17 Range/Units 21:02 07:38 07:38 Plt Count 123 L (150-450) k/uL Sodium 149 H 148 H (137-145) mmol/L Potassium 3.3 L (3.5-5.1) mmol/L Chloride 119 H 112 H (98-107) mmol/L Carbon Dioxide 20 L (22-30) mmol/L BUN 46 H 36 H (7-17) mg/dL Albumin 3.4 L (3.5-5.0) g/dL Microbiology - Last 24 Hours (Table) 01/15/17 17:59 Urine Culture - Preliminary Urine,Catheterized Gram Neg Bacilli Assessment and Plan Plan: 1. Hypovolemic hyponatremia: most likely secondary to poor by mouth intake. Continue IV fluid hydration. Nephrology following closely. 2. Uncomplicated urinary tract infection: Currently on IV ceftriaxone awaiting urine culture 3. Essential hypertension: Blood pressure well controlled. Lisinopril was discontinued with possible SIADH-like effect 4. Recent ischemic stroke involving the left MCA territory 5. Chronic vascular dementia, chronically nonverbal 6. Hypothyroidism, maintained on levothyroxin 7. DVT prophylaxis: Subcu heparin Today, I reviewed her lab work results and medication list. Continue current regimen. Repeat lab work as ordered in nephrology and daily. Replace electrolytes as needed. Continue ICU care. Appreciate data center consultant's recommendations. No family at bedside at this time to be updated.
--- NOTE | 2017-01-17 16:21 | P.PN ---
Subjective This is a 76-year-old female patient who follows with Dr. Shon bray as her primary care physician. She has a history of hypertension, coronary artery disease, dementia, hyperlipidemia, hypertension, hypothyroidism, renal failure. She had also recently suffered a cerebrovascular accident and was here approximately a month ago. From there she was discharged to an extended care facility. Yesterday her lab work revealed hyper natremia and the patient was brought to the emergency room for the same. Her presenting sodium was 160 with a chloride of 126, BUN 65 creatinine 1.10. The patient herself is a poor historian with her underlying dementia. Her daughter is at the bedside today. She states that she does have periods where she does not eat or drink and other days where she eats and drinks well. This morning she is seen in consultation in the intensive care unit. She is alert. She denies any feelings of hunger or thirst. She did have sips of water for the nurse this morning. She swallowed well. She was receiving D5W at 75 mL per hour and her current sodium is 155. She's been seen and evaluated by nephrology who has since changed her IV daily 0.45 normal saline at 75 MLS per hour. Repeat blood tests in 4 hours. Her renal function has improved to 0.99 creatinine. There is no leukocytosis. She's been afebrile. Her urinalysis reveals suspected urinary tract infection, cultures pending. She did have issues with hypertension her Norvasc and Imdur have been resumed. Improved. She denies any shortness of breath, cough or congestion. She is maintaining O2 saturations in the mid 90s on room air. Objective - Vital Signs Vital signs: Vital Signs Temp 98.4 F 01/17/17 15:00 Pulse 70 01/17/17 15:00 Resp 19 01/17/17 15:00 BP 150/92 01/17/17 15:00 Pulse Ox 94 L 01/17/17 15:00 Intake & Output 01/16/17 01/17/17 01/17/17 18:59 06:59 18:59 Intake Total 700 0 Output Total 705 Balance -5 0 Weight 74.5 kg Intake: IV 450 0.45 450 Intake, IV Titration 250 Amount Dextrose 5% in Water 1, 150 000 ml @ 75 mls/hr IV . [id number] [facility] Rx#:[id number] cefTRIAXone 1,000 mg In 100 Sodium Chloride 0.9% 50 ml @ 100 mls/hr IVPB Q24HR [facility] Rx#:[id number] Oral 0 Output: Urine 705 Other: Voiding Method Indwelling Catheter Diaper Diaper # Voids 0 5 # Bowel Movements 0 - Exam Patient is awake and alert and not in acute distress.Head exam was generally normal. There was no scleral icterus or corneal arcus. Mucous membranes were moist.Neck was supple and without jugular venous distension, thyromegaly, or carotid bruits. Carotids were easily palpable bilaterally. There was no adenopathy. My normal lungs with diminished breath sounds at lung bases bilaterally.Cardiac exam revealed the PMI to be normally situated and sized. The rhythm was regular and no extrasystoles were noted during several minutes of auscultation. The first and second heart sounds were normal and physiologic splitting of the second heart sound was noted. There were no murmurs, rubs, clicks, or gallops.Abdominal exam revealed normal bowel sounds. The abdomen was soft, non-tender, and without masses, organomegaly, or appreciable enlargement of the abdominal aorta.Examination of the extremities revealed easily palpable radial, femoral and pedal pulses. There was no cyanosis, clubbing or edema. - Labs CBC & Chem 7: 01/17/17 07:38 01/17/17 07:38 Labs: Abnormal Lab Results - Last 24 Hours (Table) 01/16/17 01/17/17 01/17/17 Range/Units 21:02 07:38 07:38 Plt Count 123 L (150-450) k/uL Sodium 149 H 148 H (137-145) mmol/L Potassium 3.3 L (3.5-5.1) mmol/L Chloride 119 H 112 H (98-107) mmol/L Carbon Dioxide 20 L (22-30) mmol/L BUN 46 H 36 H (7-17) mg/dL Albumin 3.4 L (3.5-5.0) g/dL Microbiology - Last 24 Hours (Table) 01/15/17 17:59 Urine Culture - Preliminary Urine,Catheterized Gram Neg Bacilli Assessment and Plan Plan: Impression: #1 Hypernatremia secondary to suspected poor oral intake secondary to dementia. This is improved and the patient's sodium level is down to 148. The patient is currently on half-normal saline at rate of 75 mL an hour. #2 Dementia with varying degrees of orientation and prolonged periods of declining oral intake. #3 Recent cerebrovascular accident approximately one month ago. #4 Hypertension. #5 History of coronary disease with previous stent placement. #6 Hyperlipidemia. #8 Hypothyroidism. #9 Gastroesophageal reflux disease. #10 Extended care facility resident. #11 Urinary tract infection, ID and sensitivity are pending. The patient has E. coli in the urine Plan Continue fluids. Continue IV Rocephin. Monitor electrolytes. No active pulmonary or critical care issue at this point and the patient will be seen by the primary care and pulmonary critical care will start of the case.
[2017-01-18] MEDS: SODIUM CHLORIDE 0.45% 1,000 ML IV SCH ×2 (01:52→17:33)
[2017-01-18] MEDS: HEPARIN SODIUM,PORCINE 5,000 UNIT/ML 1 ML VIAL SQ SCH ×2 (09:03→20:48)
[2017-01-18] MEDS: amLODIPine 5 MG TAB PO SCH (09:03)
[2017-01-18] MEDS: ISOSORBIDE MONONITRATE ER 30 MG TAB.ER.24H PO SCH (09:03)
[2017-01-18 09:05] LABS: Basophils % (A) 0 %; CH 30.7; CHCM 34.5; Eosinophils # (A) 0.2 k/uL (0-0.7); Eosinophils % (A) 3 %; HCT 43.5 % (34.0-46.0); HDW 2.99; HGB 14.7 gm/dL (11.4-16.0); Luc # (Auto) 0.12; Luc % (Auto) 2; Lymphocytes # (A) 1.1 k/uL (1.0-4.8); Lymphocytes % (A) 23 %; MCH 30.2 pg (25.0-35.0); MCHC 33.9 g/dL (31.0-37.0); MCV 89.1 fL (80.0-100.0); Mean Platelet Volume 7.1; Monocytes # (A) 0.2 k/uL (0-1.0); Monocytes % (A) 4 %; Neutrophils # (A) 3.4 k/uL (1.3-7.7); Neutrophils % (A) 68 %; RBC 4.88 m/uL (3.80-5.40); RDW 13.4 % (11.5-15.5); WBC (Perox) 4.88
[2017-01-18 09:06] LABS: ALT 37 U/L (9-52); AST 31 U/L (14-36); Alkaline Phosphatase 84 U/L (38-126); Anion Gap 12 mmol/L; Blood Urea Nitrogen 28 mg/dL (7-17); Calcium 8.9 mg/dL (8.4-10.2); Carbon Dioxide 22 mmol/L (22-30); Chloride 110 mmol/L (98-107); Glucose 70 mg/dL (74-99); Magnesium 1.9 mg/dL (1.6-2.3); Non-African American GFR(MDRD) >60 (>60 ml/min/1.73 sqM); Phosphorous 3.6 mg/dL (2.5-4.5); Potassium 3.3 mmol/L (3.5-5.1); Sodium 144 mmol/L (137-145); Total Protein 6.7 g/dL (6.3-8.2)
[2017-01-18] MEDS ORDERED: MAGNESIUM HYDROXIDE 2,400 MG/10 ML CUP PO PRN (10:20)
[2017-01-18] MEDS ORDERED: POTASSIUM CHLORIDE ER 20 MEQ TAB.ER PO STA (10:23)
--- NOTE | 2017-01-18 10:58 | P.PN ---
Subjective Patient is doing well today. She is alert and awake. No events overnight. Objective - Vital Signs Vital signs: Vital Signs Temp 97.3 F L 01/18/17 07:00 Pulse 64 01/18/17 07:00 Resp 16 01/18/17 07:00 BP 154/91 01/18/17 07:00 Pulse Ox 95 01/18/17 07:00 Intake & Output 01/17/17 01/18/17 01/18/17 18:59 06:59 18:59 Other: Voiding Method Diaper Diaper # Voids 5 2 - Exam General: The patient is awake and alert, in no distress Eye: there is normal conjunctiva bilaterally. Neck: The neck is supple, there is no JVD. Cardiovascular: Normal S1-S2, no S3-S4, no murmurs. Respiratory: Lungs clear to auscultation bilaterally Gastrointestinal: Abdomen is soft, nontender Musculoskeletal: There is no pedal edema. Neurological:. Speech is normal. Skin: Skin is warm and dry - Labs CBC & Chem 7: 01/18/17 08:39 01/18/17 08:37 Labs: Abnormal Lab Results - Last 24 Hours (Table) 01/18/17 01/18/17 Range/Units 08:37 08:39 Plt Count 145 L (150-450) k/uL Potassium 3.3 L (3.5-5.1) mmol/L Chloride 110 H (98-107) mmol/L BUN 28 H (7-17) mg/dL Glucose 70 L (74-99) mg/dL Microbiology - Last 24 Hours (Table) 01/15/17 17:59 Urine Culture - Preliminary Urine,Catheterized Escherichia coli Enterococcus faecalis Assessment and Plan Plan: 1. Hypovolemic hyponatremia: most likely secondary to poor by mouth intake. Improved with IV fluid hydration. Nephrology following closely. Now IV fluid hep-locked 2. Uncomplicated urinary tract infection: Currently on IV ceftriaxone awaiting urine cultureTo finalize. I will consult infectious disease for further evaluation 3. Essential hypertension: Blood pressure well controlled. Lisinopril was discontinued with possible SIADH-like effect 4. Recent ischemic stroke involving the left MCA territory 5. Chronic vascular dementia, chronically nonverbal 6. Hypothyroidism, maintained on levothyroxin 7. DVT prophylaxis: Subcu heparin Today, I reviewed her lab work results and medication list. Continue current regimen. Repeat lab work daily. Replace electrolytes as needed. Appreciate managed services consultant's recommendations. anticipate return to ECF when medically cleared for discharge.
[2017-01-18] MEDS ORDERED: ERGOCALCIFEROL 50,000 UNIT CAP PO SCH (12:00)
--- NOTE | 2017-01-18 12:10 | CDI ---
In responding to this query, please exercise your independent professional judgment. The [facility] Coding Staff and Clinical Documentation Specialists appreciate your assistance in clarifying documentation, maintaining compliance with coding guidelines, accurately documenting patients condition and capturing severity of illness. The fact that a question is asked does not imply that any particular answer is desired or expected. Communication forms are a method of clarifying documentation and are not made part of the Legal Health Record. Thank you in advance for your clarification. Last Revision, August 2015 Alvin Fierro [address] [place] [address] Documentation Clarification Form Date: 01/18/2017 12:02:00 PM From: Latesha Monson Admit Date: 01/15/2017 4:01:00 PM Patient Name: Fay Barahona Visit Number: [id number] Dr. Shady Mendes Conflicting documentation has been found in the medical record. On 01/16 in your H&P and in the progress notes following you have documented ' Hyponatremia' under Assessment and Plan. 'Hypernatremia' is documented under History of Present Illness. Pulmonary physician is documenting 'Hypernatremia'. Nephrology is also documenting both 'Hypernatremia' and 'Hyponatremia'. History/Risk Factors: Poor oral intake Dementia [facility] resident Clinical Indicators: Sodium level on 01/14 was 162 Treatment: IV fluids In your opinion what is the most clinically appropriate diagnosis for this patient? Hypernatremia Hyponatremia Both Hypernatremia and Hyponatremia OTHER explanation of clinical findings Unable to determine (no explanation for clinical findings) Please document in your progress notes and discharge summary in order to capture severity of illness and risk of mortality. Include clinical findings that support your diagnosis. FYI: Press F11 to launch patient chart. Place X here if this finding has no clinical significance, is not applicable or if you are not able to provide any additional documentation. Dicatated hyponatremia by computer error Correct diagnoses is hypernatremia please refer to discharge summary for clarification. MTDD
--- NOTE | 2017-01-18 12:16 | CDI ---
In responding to this query, please exercise your independent professional judgment. The [facility] Coding Staff and Clinical Documentation Specialists appreciate your assistance in clarifying documentation, maintaining compliance with coding guidelines, accurately documenting patients condition and capturing severity of illness. The fact that a question is asked does not imply that any particular answer is desired or expected. Communication forms are a method of clarifying documentation and are not made part of the Legal Health Record. Thank you in advance for your clarification. Last Revision, August 2015 Alvin Fierro [address] [facility] [place] [address] Documentation Clarification Form Date: 01/18/2017 12:11:00 PM From: Latesha Monson Admit Date: 01/15/2017 4:01:00 PM Patient Name: Fay Barahona Visit Number: [id number] Dr. Shady Mendes History/Risk Factors: Dementia UTI Hypertension Clinical Indicators: Patient presents with a BUN/CR/GFR of: 71/1.38/37 Treatment: Consults: Nephrology IV fluids In order to capture the severity of condition, please clarify if the condition signifies: Acute renal failure Please specify (if known): Cortical, Medullary, or Tubular Necrosis? Acute on chronic renal failure Chronic kidney disease (CKD) and please stage Stage 1 GFR >90 Stage 2 GFR 60-89 Stage 3 GFR 30-59 Stage 4 GFR 15-29 Stage 5 GFR <15 Unable to determine Other, specify Please document in your progress notes and discharge summary in order to capture severity of illness and risk of mortality. Include clinical findings that support your diagnosis. FYI: Press F11 to launch patient chart. Place X here if this finding has no clinical significance, is not applicable or if you are not able to provide any additional documentation. REY
[2017-01-18] MEDS: NYSTATIN 100,000 UNIT/ML SUSP 500,000 UNIT/5 ML CUP PO SCH ×4 (12:32→20:49)
[2017-01-18] MEDS: AMPICILLIN-SULBACTAM 1.5 GM in SODIUM CHLORIDE 0.9% 50 ML IVPB SCH ×2 (12:32→17:46)
--- NOTE | 2017-01-18 14:28 | PN ---
Patient is seen for followup for hypernatremia. The serum sodium level has improved. It is now at 144. Patient is now on half-normal saline at 75 mL an hour. On examination, blood pressure is 149/88. Patient is afebrile. Heart rate 61 per minute. She is sitting up in bed, comfortable, not in any acute distress. Examination of the heart, S1 and S2. Examination of the lungs, bilateral breath sounds are heard. Abdomen is soft, nontender. Examination of the lower extremities shows no evidence of edema. [employer] WORK[employer] exam shows patient is moving all 4 extremities. Labs show sodium 144, potassium 3.3, serum creatinine 0.8, hemoglobin 14.7 g/dL. ASSESSMENT: 1. Acute kidney injury, prerenal currently improved. 2. Hypernatremia secondary to free water deficit with serum sodium coming down from 162 on initial admission to 144 now. 3. Hypokalemia, will replace. 4. Escherichia coli urinary tract infection now with Enterococcus faecalis in the urine, maintained on Unasyn. 5. Hypertension, currently fairly controlled. PLAN: Continue half-normal saline, continue to encourage increased oral intake including plain water. Repeat labs in a.m.
[2017-01-18] MEDS: ASPIRIN 325 MG TAB PO SCH (17:46)
[2017-01-18] MEDS ORDERED: PRAVASTATIN SODIUM 40 MG TAB PO SCH (21:00)
[2017-01-19] MEDS: AMPICILLIN-SULBACTAM 1.5 GM in SODIUM CHLORIDE 0.9% 50 ML IVPB SCH ×3 (00:25→12:38)
[2017-01-19] MEDS: SODIUM CHLORIDE 0.45% 1,000 ML IV SCH (05:53)
[2017-01-19] MEDS ORDERED: LEVOTHYROXINE 88 MCG TAB PO SCH (06:00)
[2017-01-19 07:59] VITALS: RESP 14
[2017-01-19] MEDS ORDERED: ISOSORBIDE MONONITRATE ER 30 MG TAB.ER.24H PO SCH (08:00)
--- NOTE | 2017-01-19 09:26 | CONS ---
DATE OF CONSULTATION: 01/18/2017 REASON FOR CONSULTATION: Urinary tract infection. HISTORY OF PRESENT ILLNESS: The patient is a 76-year-old female who was brought to the ER at [facility] 01/15/2017 for worsening hypernatremia. Apparently has not responded to the IV infusion at the alf. Patient noticed to be weak, lethargic with decreased oral intake. On further evaluation, the patient was noticed to have a positive UA with diagnosis urinary tract infection. The patient will be started on Rocephin; however, the urine culture has not been finalized with enterococcus in addition to the Escherichia coli; hence, I was asked to see the patient further recommendations. Patient remains to be afebrile during this hospital admission and no significantly elevated white count. Her sodium is down to 110. The RN did mention that patient's mentation has much improved over the last day or two. Patient was able to answer some simple questions and denies any headache or chest pain. No cough. No abdominal pain. No diarrhea. However, it is very hard to get a history from her given her underlying dementia. Review of systems could not be reliably obtained. The positive points have been mentioned in the HPI. Past medical history significant for coronary artery disease, CVA, TIA dementia, gastroesophageal reflux disease, hypertension, hyperlipidemia, pneumonia, hypothyroidism, osteoarthritis, history of urinary tract infection, CVA with right-sided weakness. PAST SURGICAL HISTORY: PTCA with stent placement, tubal ligation, and past surgery of abdominal aortic aneurysm repair. SOCIAL HISTORY: Currently at [facility]. Remote history of smoking. No drinking or drug use. FAMILY HISTORY: Father with history of alcoholism and abdominal aortic aneurysm. Mother with history of Alzheimer's dementia. ALLERGIES: CARLOS. MEDICATIONS: Currently include the patient is on Tylenol, Norvasc, Rocephin, vitamin D2, heparin, Imdur, Synthroid, milk of magnesia, Narcan, nystatin and Pravachol. On examination, her blood pressure is 154/91 with a pulse of 54, temperature 97.3. She is 95% on room air. General description is an elderly female lying in bed in no distress. No tachypnea or accessory muscles of respiration use. HEENT examination shows pallor. No scleral icterus. Oral mucous membrane is dry. NECK: Trachea central. There is no thyromegaly. LUNGS: Unlabored breathing. Clear to auscultation anteriorly. HEART: S1, S2. Regular. ABDOMEN: Soft, no tenderness. No guarding or rigidity. EXTREMITIES: No edema of feet. SKIN EXAMINATION: No rashes. No mass palpable. NEUROLOGICAL: Patient awake and alert, oriented x1 mood and affect normal. LABS: Hemoglobin is 14.7, white count 5.0 with a BUN of 28, creatinine 0.88. Urine on admission, which was slight leukocyte esterase with moderate WBC clumps. Cultures with an E. coli and enterococcus both sensitive to the ampicillin and Unasyn. DIAGNOSTIC IMPRESSION AND PLAN: Patient with urinary tract infection with enterococcus as well as Escherichia coli. Though the Escherichia coli is covered with the Rocephin, but not so much the enterococcus and so adjust antibiotic therapy to cover both pathogens that may have contributed to some of her symptomatology especially with decreased oral with some new weakness and lethargy. PLAN: 1. Discontinue the Rocephin. 2. Start the patient on Unasyn 1.5 q.6. 3. The patient continued to improve and note that it is better to switch her over to oral Augmentin about 5 days to finish a course of therapy. Thank you for this consultation. Will follow this patient along with you.
[2017-01-19 09:44] LABS: Basophils % (A) 0 %; CH 31.1; CHCM 34.4; Eosinophils # (A) 0.2 k/uL (0-0.7); Eosinophils % (A) 4 %; HCT 40.2 % (34.0-46.0); HDW 2.85; HGB 13.7 gm/dL (11.4-16.0); Luc # (Auto) 0.08; Luc % (Auto) 2; Lymphocytes # (A) 0.6 k/uL (1.0-4.8); Lymphocytes % (A) 15 %; MCH 30.8 pg (25.0-35.0); MCV 90.6 fL (80.0-100.0); Mean Platelet Volume 7.6; Monocytes # (A) 0.2 k/uL (0-1.0); Monocytes % (A) 4 %; Neutrophils # (A) 3.2 k/uL (1.3-7.7); Neutrophils % (A) 75 %; RBC 4.44 m/uL (3.80-5.40); RDW 14.3 % (11.5-15.5); WBC 4.3 k/uL (3.8-10.6)
[2017-01-19 09:58] LABS: ALT 45 U/L (9-52); AST 36 U/L (14-36); Alkaline Phosphatase 79 U/L (38-126); Anion Gap 9 mmol/L; Blood Urea Nitrogen 33 mg/dL (7-17); Calcium 8.6 mg/dL (8.4-10.2); Carbon Dioxide 25 mmol/L (22-30); Chloride 108 mmol/L (98-107); Glucose 104 mg/dL (74-99); Magnesium 1.9 mg/dL (1.6-2.3); Non-African American GFR(MDRD) 53 (>60 ml/min/1.73 sqM); Phosphorous 3.3 mg/dL (2.5-4.5); Potassium 3.7 mmol/L (3.5-5.1); Sodium 142 mmol/L (137-145); Total Bilirubin 0.7 mg/dL (0.2-1.3); Total Protein 6.2 g/dL (6.3-8.2)
[2017-01-19] MEDS: HEPARIN SODIUM,PORCINE 5,000 UNIT/ML 1 ML VIAL SQ SCH (10:23)
[2017-01-19] MEDS: amLODIPine 5 MG TAB PO SCH (10:23)
[2017-01-19] MEDS: NYSTATIN 100,000 UNIT/ML SUSP 500,000 UNIT/5 ML CUP PO SCH ×2 (10:23→12:38)
--- NOTE | 2017-01-19 13:10 | P.DS ---
Providers Date of admission: 01/15/17 16:01 Expected date of discharge: 01/19/17 Attending physician: Shady Mendes Consults: 01/18/17 10:20 Consult Physician Routine Consulting Provider: Zeke Veronica Consult Reason/Comments: UTI Do you want consulting provider notified?: Yes [facility] Course: this is a 76-year-old female with past medical history noted below who presented to the hospital from [facility] with worsening dehydration and hypernatremia. Patient was admitted to the hospital and was treated for the below mentioned medical problems. Her clinical condition improved significantly throughout her hospital stay. She will be discharged back to [facility] in stable condition. I will continue to follow up on her closely. 1. Hypovolemic hypernatremia: most likely secondary to poor by mouth intake. Improved with IV fluid hydration. seen and evaluated by nephrology. 2. Uncomplicated urinary tract infection: seen and evaluated by infectious disease. Plan to finish therapy was Augmentin for 5 days. 3. Essential hypertension: Blood pressure well controlled. Lisinopril was discontinued with possible SIADH-like effect 4. Recent ischemic stroke involving the left MCA territory 5. Chronic vascular dementia 6. Hypothyroidism, maintained on levothyroxin Patient Condition at Discharge: Stable Plan - Discharge Summary New Discharge Prescriptions: Nystatin 100,000 Unit/ml Susp [Mycostatin Oral Susp] 500,000 unit PO QID 5 Days Discharge Medication List Ergocalciferol [Vitamin D2 (DRISDOL)] 50,000 unit PO MO 12/17/16 [History] Isosorbide Mononitrate ER [Imdur] 30 mg PO DAILY@0800 12/17/16 [History] Levothyroxine Sodium [Synthroid] 88 mcg PO DAILY@0600 12/17/16 [History] Pravastatin Sodium [Pravachol] 40 mg PO HS@2100 12/17/16 [History] Aspirin 325 mg PO DAILY@1700 01/15/17 [History] [place] Instant Breakfast 1 packet PO TID-W/MEALS 01/15/17 [History] Magnesium Hydroxide [Milk of Magnesia] 2,400 mg PO DAILY PRN 01/15/17 [History] Menthol/Zinc Oxide [Calmoseptine Ointment] 1 applic TOPICAL BID 01/15/17 [ History] amLODIPine [Norvasc] 5 mg PO HS@2130 01/15/17 [History] Nystatin 100,000 Unit/ml Susp [Mycostatin Oral Susp] 500,000 unit PO QID 5 Days 01/19/17 [Rx] Follow up Appointment(s)/Referral(s): Shady Mendes MD [Primary Care Provider] - 1-2 days Patient Instructions/Handouts: Urinary Tract Infection in Women (GEN), Hypernatremia (DC) Discharge Disposition: TRANSFER TO SNF/ECF
[2017-01-19 16:47] VITALS: BP 96/53; PULSE 72; TEMP 96.7
--- NOTE | 2017-01-19 18:16 | PN ---
Patient is seen for followup for acute kidney injury and hypernatremia. Her sodium is now at 142. Patient is currently comfortable, awake, without any acute distress. Blood pressure is 111/79, heart rate 70 per minute. She is afebrile. EXAMINATION OF THE HEART: S1 and S2. EXAMINATION OF LUNGS: Bilateral breath sounds are heard. ABDOMEN: Soft, nontender. Examination of the lower extremities shows no significant edema. Labs show sodium 142, potassium 3.7, chloride 108, serum creatinine 1.01. ASSESSMENT: 1. Acute kidney injury, prerenal, currently improved. 2. Hypernatremia secondary to free water deficit, also improved. Maintained on half normal saline. 3. Hypertension with blood pressure staying a bit on the lower side with a previous systolic of 87 mmHg yesterday. Patient is maintained on Norvasc at 5 mg daily. We can likely discontinue the Norvasc if blood pressure remains on the lower side. 4. Urinary tract infection with Escherichia coli and Enterococcus faecalis, maintained on Unasyn. PLAN: Continue half normal saline. Discontinue Norvasc if the pressure remains low.
--- NOTE | 2017-01-19 19:50 | PN ---
DATE OF SERVICE: 01/19/2017 REASON FOR FOLLOWUP: Enterococcus and E. coli urinary tract infection. INTERVAL HISTORY: The patient is afebrile. She is awake and alert. She did mention she is feeling fine. Denies any chest pain or cough. No abdominal pain or any diarrhea. On examination, blood pressure is 111/79 with a pulse of 70, temperature 96.6. She is 95% on room air. General description is an elderly female lying in bed in no distress. RESPIRATORY SYSTEM: Unlabored breathing. Clear to auscultation anteriorly. HEART: S1, S2. Regular rate and rhythm. ABDOMEN: Soft. No tenderness. LABS: Hemoglobin is 13.7, white count 4.3. BUN of 33, creatinine 1.01. Urine showing enterococcus and E. coli. DIAGNOSTIC IMPRESSION AND PLAN: Patient with enterococcus and Escherichia coli urinary tract infection showing overall improvement on Unasyn. Plan to finish therapy with p.o. Augmentin for another 5 days. Continue supportive care.
== END 2017-01-19 16:58 | DRG 641 ==
LOC: EC 14:12 → 6ICU 16:01 → 4MS4W 01-16 16:55
PROVIDERS: ADMIT Internal Medicine; ATTEND Internal Medicine
PROC: 0T9B70Z Drainage of Bladder with Drainage Device, Via Natural or Artificial Opening (ICD-10-PCS; principal; 2017-01-15)
DX: E87.0 Hyperosmolality and hypernatremia (principal); E86.0 Dehydration; N17.9 Acute kidney failure, unspecified; E22.2 Syndrome of inappropriate secretion of antidiuretic hormone; N39.0 Urinary tract infection, site not specified; I69.351 Hemiplegia and hemiparesis following cerebral infarction affecting right dominant side; F01.50 Vascular dementia, unspecified severity, without behavioral disturbance, psychotic disturbance, mood disturbance, and anxiety; R13.10 Dysphagia, unspecified; E86.1 Hypovolemia; B95.2 Enterococcus as the cause of diseases classified elsewhere; B96.20 Unspecified Escherichia coli [E. coli] as the cause of diseases classified elsewhere; E87.6 Hypokalemia; E87.8 Other disorders of electrolyte and fluid balance, not elsewhere classified; I25.10 Atherosclerotic heart disease of native coronary artery without angina pectoris; K21.9 Gastro-esophageal reflux disease without esophagitis; I69.398 Other sequelae of cerebral infarction; E78.5 Hyperlipidemia, unspecified; M19.90 Unspecified osteoarthritis, unspecified site; R63.3 Feeding difficulties; F32.9 Major depressive disorder, single episode, unspecified; T46.4X5A Adverse effect of angiotensin-converting-enzyme inhibitors, initial encounter; I25.2 Old myocardial infarction; I10 Essential (primary) hypertension; E03.9 Hypothyroidism, unspecified; Z95.5 Presence of coronary angioplasty implant and graft; Z79.899 Other long term (current) drug therapy; Z79.82 Long term (current) use of aspirin; Z81.1 Family history of alcohol abuse and dependence; Z87.440 Personal history of urinary (tract) infections; Z86.79 Personal history of other diseases of the circulatory system; Z82.0 Family history of epilepsy and other diseases of the nervous system; Z87.891 Personal history of nicotine dependence; Z71.3 Dietary counseling and surveillance; Z82.49 Family history of ischemic heart disease and other diseases of the circulatory system; Z98.51 Tubal ligation status; Z87.01 Personal history of pneumonia (recurrent); Z91.048 Other nonmedicinal substance allergy status; Z98.49 Cataract extraction status, unspecified eye; Z87.448 Personal history of other diseases of urinary system
CPT/HCPCS: 36415; 71020; 80048; 80053; 81001; 83735; 83880; 84100; 84484; 85025; 87077; 87086; 87186; 93005; 96361; 96365; 99285

== ENCOUNTER 2017-06-05 19:36 | Inpatient (IN) | payer MEDICARE, OTHER ==
--- NOTE | 2017-06-05 20:00 | ED ---
General Adult HPI - General Chief complaint: Chest Pain Stated complaint: chest pain Time Seen by Provider: 06/05/17 19:50 Source: EMS, RN notes reviewed, old records reviewed Mode of arrival: EMS Limitations: language barrier, physical limitation - History of Present Illness Initial comments: This is a 76-year-old female here for evaluation. Patient comes in for evaluation of chest pain. Patient is poor strain today. Secondary to clinical condition and recent CVA. Patient had chest pain while at [facility] this afternoon. At this time patient has no real significant complaints, does complain of mild chest pain miniatures of breath per report and charting and EMS patient is recent fevers. And was fine throughout the day. Recent history does include recent hospitalization secondary to hypoxic cardiac arrest from choking hazard,. - Related Data Home Medications Medication Instructions Recorded Confirmed Ergocalciferol [Vitamin D2 50,000 unit PO MO 12/17/16 06/05/17 (DRISDOL)] Isosorbide Mononitrate ER [Imdur] 30 mg PO DAILY 12/17/16 06/05/17 Levothyroxine Sodium [Synthroid] 88 mcg PO DAILY 12/17/16 06/05/17 Pravastatin Sodium [Pravachol] 40 mg PO HS 12/17/16 06/05/17 Aspirin 325 mg PO HS 01/15/17 06/05/17 amLODIPine [Norvasc] 5 mg PO HS 01/15/17 06/05/17 Polyethylene Glycol 3350 [Miralax] 17 gm PO HS 06/05/17 06/05/17 Allergies Allergy/AdvReac Type Severity Reaction Status Date / Time nickel Allergy Unknown Verified 06/05/17 20:11 Review of Systems ROS Statement: Those systems with pertinent positive or pertinent negative responses have been documented in the HPI. ROS Other: All systems not noted in ROS Statement are negative. Past Medical History Past Medical History: Coronary Artery Disease (CAD), Chest Pain / Angina, CVA/ TIA, Dementia, GERD/Reflux, Hyperlipidemia, Hypertension, Memory Impairment, Myocardial Infarction ([place]), Osteoarthritis (OA), Pneumonia, Thyroid Disorder Additional Past Medical History / Comment(s): UTI(E COLI),RT SIDED WEAKNESS( PAST CVA), cardiac arrest 2 weeks ago Last Myocardial Infarction Date:: 2006 History of Any Multi-Drug Resistant Organisms: None Reported Past Surgical History: Breast Surgery, Heart Catheterization With Stent, Tubal Ligation Additional Past Surgical History / Comment(s): cataract surgery, AAA surgery, breast lumps removed Past Anesthesia/Blood Transfusion Reactions: No Reported Reaction Date of Last Stent Placement:: 2006 Past Psychological History: No Psychological Hx Reported, Depression Smoking Status: Former smoker Past Alcohol Use History: None Reported Past Drug Use History: None Reported - Past Family History Father Additional Family Medical History / Comment(s): alcoholic, AAA Mother Family Medical History: Memory Impairment Additional Family Medical History / Comment(s): from Alzheimers General Exam Limitations: language barrier, physical limitation General appearance: alert, in no apparent distress Head exam: Present: atraumatic, normocephalic, normal inspection Eye exam: Present: normal appearance, PERRL, EOMI. Absent: scleral icterus, conjunctival injection, periorbital swelling ENT exam: Present: normal exam, mucous membranes moist Neck exam: Present: normal inspection. Absent: tenderness, meningismus, lymphadenopathy Respiratory exam: Present: normal lung sounds bilaterally. Absent: respiratory distress, wheezes, rales, rhonchi, stridor Cardiovascular Exam: Present: regular rate, normal rhythm, normal heart sounds. Absent: systolic murmur, diastolic murmur, rubs, gallop, clicks GI/Abdominal exam: Present: soft, normal bowel sounds. Absent: distended, tenderness, guarding, rebound, rigid Extremities exam: Present: normal inspection, full ROM, normal capillary refill. Absent: tenderness, pedal edema, joint swelling, calf tenderness Back exam: Present: normal inspection Neurological exam: Present: alert, oriented X3, CN II-XII intact Psychiatric exam: Present: normal affect, normal mood Skin exam: Present: warm, dry, intact, normal color. Absent: rash Course Vital Signs 06/05/17 06/05/17 19:38 20:44 Temperature 98.3 F Pulse Rate 85 79 Respiratory 18 18 Rate Blood Pressure 153/85 134/72 O2 Sat by Pulse 95 Oximetry - Reevaluation(s) Reevaluation #1: 06/05/17 20:25 Medical records reviewed Reevaluation #2: 06/05/17 20:25 Patient remains without chest pain EKG Findings - EKG Comments: EKG Findings:: EKG shows normal sinus rhythm rate of 82, MA 164, QRS 80, QTC 457 Medical Decision Making - Lab Data Result diagrams: 06/05/17 20:02 Lab Results 06/05/17 06/05/17 Range/Units 20:02 20:02 WBC 6.7 (3.8-10.6) k/uL RBC 4.19 (3.80-5.40) m/uL Hgb 12.3 (11.4-16.0) gm/dL Hct 38.2 (34.0-46.0) % MCV 91.1 (80.0-100.0) fL MCH 29.4 (25.0-35.0) pg MCHC 32.2 (31.0-37.0) g/dL RDW 15.7 H (11.5-15.5) % Plt Count 235 (150-450) k/uL Neutrophils % 60 % Lymphocytes % 27 % Monocytes % 5 % Eosinophils % 5 % Basophils % 0 % Neutrophils # 4.0 (1.3-7.7) k/uL Lymphocytes # 1.9 (1.0-4.8) k/uL Monocytes # 0.3 (0-1.0) k/uL Eosinophils # 0.3 (0-0.7) k/uL Basophils # 0.0 (0-0.2) k/uL PT 10.1 (9.0-12.0) sec INR 1.0 (<1.2) APTT 21.7 L (22.0-30.0) sec - Radiology Data Radiology results: report reviewed (Chest x-ray is negative for acute disease), image reviewed Disposition Clinical Impression: Sternal fracture Disposition: ADMITTED IP TO [facility] Condition: Fair Referrals: Shady Mendes MD [Primary Care Provider] - 1-2 days
[2017-06-05 20:22] LABS: Basophils % (A) 0 %; CH 30.2; CHCM 33.3; Eosinophils # (A) 0.3 k/uL (0-0.7); Eosinophils % (A) 5 %; HCT 38.2 % (34.0-46.0); HDW 2.76; HGB 12.3 gm/dL (11.4-16.0); Luc % (Auto) 3; Lymphocytes # (A) 1.9 k/uL (1.0-4.8); Lymphocytes % (A) 27 %; MCH 29.4 pg (25.0-35.0); MCHC 32.2 g/dL (31.0-37.0); MCV 91.1 fL (80.0-100.0); Mean Platelet Volume 7.3; Monocytes # (A) 0.3 k/uL (0-1.0); Monocytes % (A) 5 %; Neutrophils % (A) 60 %; RBC 4.19 m/uL (3.80-5.40); RDW 15.7 % (11.5-15.5); WBC 6.7 k/uL (3.8-10.6); WBC (Perox) 6.82
[2017-06-05] MEDS ORDERED: KETOROLAC 30 MG/ML 1 ML VIAL IVP STA (20:26)
[2017-06-05] MEDS ORDERED: MORPHINE SULFATE 4 MG/ML SYRINGE IVP STA (20:26)
[2017-06-05 20:40] LABS: ALT 23 U/L (9-52); AST 29 U/L (14-36); Alkaline Phosphatase 71 U/L (38-126); Anion Gap 9 mmol/L; Blood Urea Nitrogen 48 mg/dL (7-17); Calcium 9.2 mg/dL (8.4-10.2); Carbon Dioxide 22 mmol/L (22-30); Chloride 108 mmol/L (98-107); Glucose 71 mg/dL (74-99); Non-African American GFR(MDRD) 54 (>60 ml/min/1.73 sqM); Sodium 139 mmol/L (137-145); Total Bilirubin 0.6 mg/dL (0.2-1.3); Total Protein 6.8 g/dL (6.3-8.2)
[2017-06-05 20:52] LABS: Partial Thromboplastin Time 21.7 sec (22.0-30.0); Prothrombin Time 10.1 sec (9.0-12.0)
[2017-06-05] MEDS ORDERED: MORPHINE SULFATE 4 MG/ML SYRINGE IVP PRN (20:58)
[2017-06-05] MEDS ORDERED: SODIUM CHLORIDE 0.9% 1,000 ML IV ONE (20:58)
--- NOTE | 2017-06-05 21:00 | XR ---
EXAMINATION TYPE: XR chest 2V DATE OF EXAM: 06/05/2017 COMPARISON: 01/15/2017 INDICATION: CPR, Heimlich TECHNIQUE: Frontal and lateral views of the chest are obtained. FINDINGS: The heart size is normal. The pulmonary vasculature is normal. No pneumothorax is evident. No radiopaque foreign bodies are sue ntified. The lungs are clear. No suspicious infiltrates are evident. There appears to be some descending thor acic aortic aneurysm present, the opacification appears similar to the prior examination of 01/15/2017. Displaced rib fractures are not identified. The lateral projection there appears to be a step-off of the mid sternum compatible with a fracture. This is a change from 01/15/2017. This is a posterior step-off of the inferior fracture fragment of 0.4 2 cm. IMPRESSION: 1. Fracture of the mid sternum. Report was called to emergency room physician by Dr. Melissa by telep floresita at the time of interpretation 2. No acute pulmonary process. 3. Possible descending thoracic aortic aneurysm.
[2017-06-05 21:03] LABS: Potassium 5.5 mmol/L (3.5-5.1)
[2017-06-05 21:12] LABS: Troponin I 0.021 ng/mL (0.000-0.034)
[2017-06-05 22:27] VITALS: BMI 25.4
--- NOTE | 2017-06-06 14:39 | P.HPIM ---
History of Present Illness H&P Date: 06/06/17 Chief Complaint: Chest pain His 76-year-old female who resides at [facility] and was transferred to [facility] emergency room due to worsening chest pain. History obtained partially from patient however she is a very poor historian. Further history obtained from review of chart, and from phone call to her next of kin her Dr. Melina Chaney. Patient had an episode of choking on some food in the beginning of May she had Heimlich procedure and subsequently had resuscitation was chest pressure she was taken to [facility] and apparently she had a sternal fracture she was treated there and was transferred back to [facility]. Yesterday she was having some worsening pain in her chest and patient was transferred to [facility] for evaluation patient was evaluated and her EKG revealed normal sinus rhythm without any significant ST or T-wave abnormalities her first troponin was less than 0.021 she was admitted for further evaluation and for pain control.. Past Medical History Past Medical History: Coronary Artery Disease (CAD), Chest Pain / Angina, CVA/ TIA, Dementia, GERD/Reflux, Hyperlipidemia, Hypertension, Memory Impairment, Myocardial Infarction ([place]), Osteoarthritis (OA), Pneumonia, Thyroid Disorder Additional Past Medical History / Comment(s): UTI(E COLI),RT SIDED WEAKNESS( PAST CVA), cardiac arrest 2 weeks ago Last Myocardial Infarction Date:: 2006 History of Any Multi-Drug Resistant Organisms: None Reported Past Surgical History: Breast Surgery, Heart Catheterization With Stent, Tubal Ligation Additional Past Surgical History / Comment(s): cataract surgery, AAA surgery, breast lumps removed Past Anesthesia/Blood Transfusion Reactions: No Reported Reaction Date of Last Stent Placement:: 2006 Past Psychological History: No Psychological Hx Reported, Depression Additional Psychological History / Comment(s): PT CURENTLY AT [facility] SINCE HOSPITALIZATION 12-17-16,NEEDS ASSIST TO W/C, PT FORGETFULL AND WILL TRY TO GET UP ON HER OWN. FAMILY STATED CHOKES EASILY SEE [facility] TRANSFER RECORD FOR DIET INSTRUCTIONS, . D/T DEMENTIA NO LONGER READS/WRITES, Smoking Status: Former smoker Past Alcohol Use History: None Reported Past Drug Use History: None Reported - Past Family History Father Additional Family Medical History / Comment(s): alcoholic, AAA Mother Family Medical History: Memory Impairment Additional Family Medical History / Comment(s): from Alzheimers Medications and Allergies Home Medications Medication Instructions Recorded Confirmed Type Ergocalciferol [Vitamin D2 50,000 unit PO MO 12/17/16 06/05/17 History (DRISDOL)] Isosorbide Mononitrate ER [Imdur] 30 mg PO DAILY 12/17/16 06/05/17 History Levothyroxine Sodium [Synthroid] 88 mcg PO DAILY 12/17/16 06/05/17 History Pravastatin Sodium [Pravachol] 40 mg PO HS 12/17/16 06/05/17 History Aspirin 325 mg PO HS 01/15/17 06/05/17 History amLODIPine [Norvasc] 5 mg PO HS 01/15/17 06/05/17 History Polyethylene Glycol 3350 [Miralax] 17 gm PO HS 06/05/17 06/05/17 History Allergies Allergy/AdvReac Type Severity Reaction Status Date / Time nickel Allergy Unknown Verified 06/05/17 20:11 Physical Exam Vitals: Vital Signs Temp Pulse Pulse Resp BP BP Pulse Ox 06/06/17 07:00 98.2 F 67 18 139/68 94 L 06/05/17 22:20 97.9 F 90 16 166/93 98 06/05/17 21:43 90 16 128/75 95 06/05/17 21:30 90 16 128/75 95 06/05/17 20:44 79 18 134/72 95 06/05/17 19:38 98.3 F 85 18 153/85 Intake and Output 06/05/17 06/06/17 06/06/17 22:59 06:59 14:59 Intake Total 590 1000 Balance 590 1000 Intake: Intake, IV Titration 800 Amount Sodium Chloride 0.9% 1, 800 000 ml @ 100 mls/hr IV . Q10H ONE Rx#:[id number] Oral 590 200 Other: Voiding Method Diaper Diaper Incontinent Incontinent # Voids 2 2 Weight 69.4 kg In general patient is alert and oriented 3 in no apparent distress HEENT head normocephalic and atraumatic Neck is supple no JVD no goiter no lymphadenopathy Chest exam reveals a few scattered crackles no wheezing Cardiac exam reveals regular heart sounds S1 and S2 no gallops no murmurs Abdomen is soft nontender no organomegaly with normal bowel sounds Extremity exam reveals no edema no cyanosis or clubbing Results CBC & Chem 7: 06/05/17 20:02 06/05/17 20:02 Labs: Abnormal Lab Results - Last 24 Hours (Table) 06/05/17 06/05/17 06/05/17 Range/Units 20:02 20:02 20:02 RDW 15.7 H (11.5-15.5) % APTT 21.7 L (22.0-30.0) sec Potassium 5.5 H (3.5-5.1) mmol/L Chloride 108 H (98-107) mmol/L BUN 48 H (7-17) mg/dL Glucose 71 L (74-99) mg/dL Thrombosis Risk Factor Assmnt - Choose All That Apply Any of the Below Risk Factors Present?: Yes Each Factor Represents 1 point: Obesity (BMI >25) Other Risk Factors: Yes Each Risk Factor Represents 3 Points: Age 75 years or older Other congenital or acquired thrombophilia - If yes, enter type in comment: No Thrombosis Risk Factor Assessment Total Risk Factor Score: 4 Thrombosis Risk Factor Assessment Level: Moderate Risk Assessment and Plan Plan: #1 episode of chest pain first troponin was negative Will obtain a second troponin now EKG was negative most likely pain is related to sternal fracture #2 for pain management patient is receiving IV morphine when necessary #3 underlying history of hypertension #4 underlying history of hyperlipidemia #5 underlying history of hypothyroidism Will resume home medications continue with pain management will add Page [phone] one every 8 hours when necessary If patient can be weaned off IV pain medication she can be transferred back to [facility]
[2017-06-06 20:58] VITALS: RESP 16
[2017-06-06] MEDS ORDERED: ASPIRIN 325 MG TAB PO SCH (21:00)
[2017-06-06] MEDS ORDERED: amLODIPine 5 MG TAB PO SCH (21:00)
[2017-06-06] MEDS ORDERED: POLYETHYLENE GLYCOL 3350 17 GM POWD.PACK PO SCH (21:00)
[2017-06-06] MEDS ORDERED: PRAVASTATIN SODIUM 40 MG TAB PO SCH (21:00)
[2017-06-07] MEDS ORDERED: LEVOTHYROXINE 88 MCG TAB PO SCH (06:30)
[2017-06-07 08:23] LABS: Basophils % (A) 1 %; CHCM 32.6; Eosinophils # (A) 0.3 k/uL (0-0.7); Eosinophils % (A) 5 %; HDW 2.71; HGB 11.4 gm/dL (11.4-16.0); Luc # (Auto) 0.13; Luc % (Auto) 2; Lymphocytes # (A) 1.4 k/uL (1.0-4.8); Lymphocytes % (A) 25 %; MCH 28.5 pg (25.0-35.0); MCHC 30.9 g/dL (31.0-37.0); MCV 92.3 fL (80.0-100.0); Mean Platelet Volume 6.8; Monocytes # (A) 0.2 k/uL (0-1.0); Monocytes % (A) 4 %; Neutrophils # (A) 3.6 k/uL (1.3-7.7); Neutrophils % (A) 63 %; RBC 4.01 m/uL (3.80-5.40); RDW 15.1 % (11.5-15.5); WBC 5.7 k/uL (3.8-10.6); WBC (Perox) 5.86
[2017-06-07 08:55] LABS: ALT 24 U/L (9-52); AST 25 U/L (14-36); Alkaline Phosphatase 71 U/L (38-126); Anion Gap 9 mmol/L; Blood Urea Nitrogen 23 mg/dL (7-17); Calcium 8.9 mg/dL (8.4-10.2); Carbon Dioxide 22 mmol/L (22-30); Chloride 112 mmol/L (98-107); Glucose 74 mg/dL (74-99); Non-African American GFR(MDRD) 55 (>60 ml/min/1.73 sqM); Potassium 4.8 mmol/L (3.5-5.1); Sodium 143 mmol/L (137-145); Total Bilirubin 0.6 mg/dL (0.2-1.3); Total Protein 6.1 g/dL (6.3-8.2)
[2017-06-07] MEDS ORDERED: ISOSORBIDE MONONITRATE ER 30 MG TAB.ER.24H PO SCH (09:00)
[2017-06-07] MEDS ORDERED: traMADol 50 MG TAB PO PRN (09:00)
--- NOTE | 2017-06-07 11:22 | P.DS ---
Providers Date of admission: 06/05/17 20:58 Expected date of discharge: 06/07/17 Attending physician: Shady Mendes [facility]: Discharge diagnosis #1 episode of chest pain likely pain is related to sternal fracture. EKG negative. Troponins negative 2. VA ruled out #2 for pain management patient is receiving IV morphine when necessary #3 underlying history of hypertension #4 underlying history of hyperlipidemia #5 underlying history of hypothyroidism Hospital course His 76-year-old female who resides at [facility] and was transferred to [facility] emergency room due to worsening chest pain. History obtained partially from patient however she is a very poor historian. Further history obtained from review of chart, and from phone call to her next of kin her Dr. Melina Chaney. Patient had an episode of choking on some food in the beginning of May she had Heimlich procedure and subsequently had resuscitation was chest pressure she was taken to [facility] and apparently she had a sternal fracture she was treated there and was transferred back to [facility]. Yesterday she was having some worsening pain in her chest and patient was transferred to [facility] for evaluation patient was evaluated and her EKG revealed normal sinus rhythm without any significant ST or T-wave abnormalities her first troponin was less than 0.021 she was admitted for further evaluation and for pain control.. Likely patient's pain is related to a sternal fracture. Pain is controlled with oral pain medications. Troponins were negative 2 sets. EKG showing no acute changes. Patient has not been requiring pain medication regularly. She is stable for discharge back to [facility]. I performed an examination of the patient and discussed their management with the physician Sign Erector. I have reviewed the Physician Sign Erector's notes and agree with the documented findings and plan of care Patient Condition at Discharge: Stable Plan - Discharge Summary New Discharge Prescriptions: New traMADol HCl [Ultram] 50 mg PO Q8H PRN #30 tab PRN Reason: Pain Continue Pravastatin Sodium [Pravachol] 40 mg PO HS Levothyroxine Sodium [Synthroid] 88 mcg PO DAILY Ergocalciferol [Vitamin D2 (DRISDOL)] 50,000 unit PO MO Isosorbide Mononitrate ER [Imdur] 30 mg PO DAILY amLODIPine [Norvasc] 5 mg PO HS Aspirin 325 mg PO HS Polyethylene Glycol 3350 [Miralax] 17 gm PO HS Discharge Medication List Ergocalciferol [Vitamin D2 (DRISDOL)] 50,000 unit PO MO 12/17/16 [History] Isosorbide Mononitrate ER [Imdur] 30 mg PO DAILY 12/17/16 [History] Levothyroxine Sodium [Synthroid] 88 mcg PO DAILY 12/17/16 [History] Pravastatin Sodium [Pravachol] 40 mg PO HS 12/17/16 [History] Aspirin 325 mg PO HS 01/15/17 [History] amLODIPine [Norvasc] 5 mg PO HS 01/15/17 [History] Polyethylene Glycol 3350 [Miralax] 17 gm PO HS 06/05/17 [History] traMADol HCl [Ultram] 50 mg PO Q8H PRN #30 tab 06/07/17 [Rx] Follow up Appointment(s)/Referral(s): Shady Mendes MD [Primary Care Provider] - 1 Week Activity/Diet/Wound Care/Special Instructions: Diet: cardiac Activity: as tolerated Discharge back to [place] Discharge Disposition: TRANSFER TO SNF/ECF
[2017-06-07] MEDS ORDERED: ERGOCALCIFEROL 50,000 UNIT CAP PO SCH (12:00)
[2017-06-07 16:05] VITALS: BP 128/69; PULSE 76; TEMP 97.8
== END 2017-06-07 16:35 | DRG 561 ==
LOC: EC 19:36 → 5ONC 20:58
PROVIDERS: ADMIT Internal Medicine; ATTEND Internal Medicine
DX: S22.20XD Unspecified fracture of sternum, subsequent encounter for fracture with routine healing (principal); Z86.74 Personal history of sudden cardiac arrest; F03.90 Unspecified dementia, unspecified severity, without behavioral disturbance, psychotic disturbance, mood disturbance, and anxiety; I10 Essential (primary) hypertension; E78.5 Hyperlipidemia, unspecified; E03.9 Hypothyroidism, unspecified; I25.10 Atherosclerotic heart disease of native coronary artery without angina pectoris; K21.9 Gastro-esophageal reflux disease without esophagitis; I25.2 Old myocardial infarction; M19.91 Primary osteoarthritis, unspecified site; Z79.82 Long term (current) use of aspirin; Z79.899 Other long term (current) drug therapy; Z86.73 Personal history of transient ischemic attack (TIA), and cerebral infarction without residual deficits; Z87.891 Personal history of nicotine dependence; Z91.048 Other nonmedicinal substance allergy status
CPT/HCPCS: 36415; 71020; 80053; 82550; 82553; 83690; 83735; 84484; 85025; 85610; 85730; 93005